=== PATIENT | male | born 1990 | race African-American/Black ===

== ENCOUNTER 2021-04-25 14:04 | Inpatient (IN) | payer BC, SELFPAY ==
[2021-04-25 14:18] VITALS: BP 143/82; PULSE 126; RESP 18; TEMP 36.3; O2SAT 100
[2021-04-25 17:02] VITALS: BP 124/63; PULSE 84; RESP 18; TEMP 37.6; O2SAT 98
--- NOTE | 2021-04-25 18:46 | ED.SKABFB ---
HPI - Skin/Abscess/Foreign Bdy General Chief complaint: Skin/Abscess/Foreign Body Stated complaint: abscess Time Seen by Provider: 04/25/21 17:17 Source: patient Mode of arrival: ambulatory Limitations: no limitations History of Present Illness HPI narrative: This is a 30 year old male that presents to the ER for an abscess to the buttock present over the last week. Reports swelling and pain to the area. Reports he has also noted over the last couple of days he has been thirsty and urinating more frequently. Denies fever or drainage. Related Data Home Medications Medication Instructions Recorded Confirmed No Home Medications 04/25/21 04/25/21 Allergies Allergy/AdvReac Type Severity Reaction Status Date / Time No Known Allergies Allergy Verified 04/25/21 17:04 Review of Systems Review of Systems: CONSTITUTIONAL: Denies fever GENITOURINARY: Denies dysuria or hematuria. SKIN: Reports abscess All systems reviewed & are unremarkable except as noted in HPI and below PMFSH Past Medical History Medical History (Updated 04/25/21 @ 22:04 by Helen Linder PA-C) Obesity (BMI 30-39.9) Social History Social History (Updated 04/25/21 @ 18:49 by eHlen Linder PA-C) Smoking status: Never smoker Exam Narrative: GENERAL: Well-appearing, well-nourished, and in no acute distress. HEAD: Normocephalic, atraumatic. EYES: EOMI. CHEST: No respiratory distress. HEART: Regular rate BACK: Pilonidal swelling and erythema with induration and central fluctuance EXTREMITIES: Normal range of motion. No edema. SKIN: Warm, dry, no rash. NEURO: No focal deficits. Alert and oriented x3. PSYCH: Normal mood and affect Course Consultations Consultation #1: Spoke with whitewater rafting guide about work-up who will consult. Date: 04/25/21 Consultation #2: Spoke with hospitalist about work-up who accepts admission Date: 04/25/21 Vital Signs Vital signs: Vital Signs Temperature 97.3 F L 04/25/21 14:18 Pulse Rate 126 H 04/25/21 14:18 Respiratory Rate 18 04/25/21 14:18 Blood Pressure 143/82 H 04/25/21 14:18 Pulse Oximetry 100 04/25/21 14:18 Temperature 98.2 F 04/25/21 21:54 Pulse Rate 117 H 04/25/21 21:54 Respiratory Rate 22 H 04/25/21 21:54 Blood Pressure 117/64 04/25/21 21:54 Pulse Oximetry 100 04/25/21 21:54 Procedures Abscess I/D back: Date of Incision: 04/25/21 Local Anesthetic: lidocaine 1% and with epi Amount of anesthesia used (mL): 3 Technique: incised with #11 blade Irrigation: Yes Packing used?: iodoform I&D Results: Pus and Blood MDM - Skin/Abscess/Foreign Bdy MDM Narrative Medical decision making narrative: Patient presents to the ER for pilonidal abscess. Tachycardic and borderline febrile on arrival. Also reporting polyuria and polydipsia. CBC is with leukocytosis to 18. Metabolic panel with a glucose of 452, bicarb of 9 and anion gap of 23. Beta hydroxybutyrate is 5.2. Urine with 2+ ketones. Hemoglobin A1c 11.3. ABG with pH of 7.281, PCO2 of 21.4. Patient was updated on case findings. He is a new onset diabetic. Hydrated with 3 L of IV fluids in the ED and started on IV antibiotics. Blood cultures and wound culture sent. Abscess was drained. Will be admitted for further management of DKA and sepsis. Spoke with whitewater rafting guide about work-up who will consult. Spoke with hospitalist about work-up who accepts admission Lab Data Attestation: I reviewed the patient's lab results. Result diagrams: 04/25/21 19:04 04/25/21 19:05 Labs: Lab Results 04/25/21 04/25/21 04/25/21 Range/Units 18:50 19:04 19:05 WBC 18.0 H (4.5-10.0) K/mm3 RBC 5.49 (4.6-6.20) M/mm3 Hgb 15.2 (14.0-18.0) g/dL Hct 45.1 (42.0-52.0) % MCV 82.1 (80-100) fl MCH 27.7 (26-34) pg MCHC 33.7 (32-36) g/dl RDW 12.1 (11.5-14.5) % Plt Count 260 (150-375) k/mm3 MPV 13.0 H (7.4-10.4) fl [facility]
[2021-04-25 18:52] LABS: Glucose Point of Care 455 mg/dl (65-105)
[2021-04-25 19:09] VITALS: BP 117/82; PULSE 135; TEMP 37.7; O2SAT 98
[2021-04-25] MEDS: SODIUM CHLORIDE 0.9% IV 1,000 ML 999 ML IV CONT ×3 (19:18→23:20)
[2021-04-25 19:19] LABS: Basophils Absolute Auto 0.1 K/mm3 (0.0-0.1); Basophils Percent Auto 0.4 % (0.2-1.2); Eosinophils Percent Auto 0.2 % (0-4.4); Hematocrit 45.1 % (42.0-52.0); Hemoglobin 15.2 g/dL (14.0-18.0); Immature Granulocyte Absolute 0.13 K/mm3 (0.00-0.031); Immature Granulocyte Percent A 0.7 % (0-0.5); Lymphocytes Absolute Auto 1.67 K/mm3 (0.9-3.2); Lymphocytes Percent Auto 9.3 % (18.3-44.2); Mean Corpuscular HGB Conc 33.7 g/dl (32-36); Mean Corpuscular Hemoglobin 27.7 pg (26-34); Mean Corpuscular Volume 82.1 fl (80-100); Monocytes Absolute Auto 1.5 K/mm3 (0.1-0.6); Monocytes Percent Auto 8.3 % (2.6-8.5); Neutrophils Absolute Auto 14.6 K/mm3 (1.3-6.7); Neutrophils Percent Auto 81.1 % (45.5-73.1); Platelet Count Result 260 k/mm3 (150-375); Red Blood Count 5.49 M/mm3 (4.6-6.20); Red Cell Distribution Width 12.1 % (11.5-14.5)
[2021-04-25 19:29] LABS: Add Urine Microscopic? YES; Appearance Urine Clear (Clear); Bilirubin Urine Negative (Negative); Blood Urine Negative (Negative); Color Urine Straw (Yellow); Glucose Urine UA 3+ mg/dL (Negative); Ketones Urine 2+ mg/dL (Negative); Leukocyte Esterase Ur Negative LEU/UL (Negative); Mucus Urine Rare /lpf; Nitrate Urine Negative (Negative); Protein Urine 1+ mg/dL (Negative); RBC Urine 0-2 /hpf (0-2); Squamous Epithelial Cell Urine Rare /hpf (Few); Urobilinogen Urine Negative mg/dL (<2.0); WBC Urine 0-3 /hpf
[2021-04-25 19:31] LABS: Alanine Aminotransferase 47 U/L (4-50); Albumin Level 5.1 g/dL (3.5-5.1); Alkaline Phosphatase 172 U/L (38-126); Anion Gap 23 mmol/L (8-16); Aspartate Amino Transferase 37 U/L (17-59); Bilirubin,Total 1.6 mg/dL (0.2-1.3); Blood Urea Nitrogen 11 mg/dL (9-20); Calcium 10.1 mg/dL (8.4-10.2); Carbon Dioxide 9 mmol/L (22-30); Chloride 99 mmol/L (98-107); Estimated CRCL calculation 124 ml/min; Estimated Glomerular Filt Rate > 60; Glucose 452 mg/dL (65-110); Hemoglobin A1C 11.3 % (<5.7); Potassium 4.2 mmol/L (3.4-5.0); Sodium 131 mmol/L (137-145)
[2021-04-25] MEDS: ACETAMINOPHEN 500 MG TABLET 1000 MG PO (19:34)
[2021-04-25 20:27] LABS: Lactic Acid Reflex 1.8 mmol/L (0.7-2.1)
[2021-04-25 20:30] LABS: Magnesium 1.9 mg/dL (1.6-2.3); Phosphorus 3.8 mg/dL (2.5-4.5)
[2021-04-25 20:33] LABS: CRP 8.3 mg/dL (<1.0)
[2021-04-25 20:34] LABS: Base Excess ABG -14.7 mEq/l (+/-2.0); Carboxyhemoglobin 0.6 % THb (0-2.0); Fractional Inspired Oxygen 21 %; HCO3 ABG 9.9 mEq/l (22.0-26.0); Methemoglobin ABG 0.3 %THb (0-1.5); Oxygen Content ABG 19.1 %vol (16.0-22.0); Oxygen Saturation ABG 97.3 % (95.0-100.0); Oxyhemoglobin 96.7 % THb (90.0-100.0); PO2 ABG 105.1 mmHg (80.0-100.0); Reduced Hemoglobin 2.4 %THb (0-5.0)
[2021-04-25 20:36] LABS: PCO2 ABG 21.4 mmHg (35.0-45.0); pH ABG 7.281 (7.350-7.450)
[2021-04-25 20:37] LABS: Device ROOM AIR; Modified Allen's Test Pass; Site Drawn RIGHT RADIAL
--- NOTE | 2021-04-25 21:24 | PM.IMHP ---
H&P: HPI History of Present Illness Date/Time: 04/25/21 21:24 Chief Complaint: Boil on buttock Narrative: 30-year-old male with past medical history of obesity who presents the ER fell follow a tyler of a boil on his coccyx. He reports that he noticed an area of tenderness on his and coccyx approximately 2 weeks ago. However was not until the last 48 hours that the area began to swell and become acutely more painful and warm to touch. He denied any associated fevers or chills. On exam the patient was noted to have a large infected pilonidal cyst that was drained by the ER provider. Shortly after arrival to the ER the patient did spike a fever to 99.9? and he was tachycardic with a heart rate up to the 130s. Incidentally he reported increased thirst and urinary frequency over the last several days. He reports that his mouth has been chronically dry for several weeks no matter how much he drinks. He has had increased nocturia. He denied prior history of diabetes. In the ER labs were obtained which demonstrated hyperglycemia with evidence of DKA. 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 He does not weigh himself and does not know if his weight is changed. He does snore and reports daytime fatigue and sleepiness. He has been having a sore throat recently in on exam he noted to have some white plaques to his soft palate and tongue. He has been having intermittent shortness of breath for the last couple of days. He denies any nausea or vomiting. He has been having normal bowel movements. He is not vaccinated against COVID-19. Review of Systems Review of Systems: 12 systems were reviewed with pertinent positives and negatives per HPI. Except as documented in the HPI, all other systems were reviewed and are negative. [facility] Past Medical History Medical History (Updated 04/26/21 @ 02:49 by Phylicia Dunne DO) Obesity (BMI 30-39.9) Surgical History Surgical History (Updated 04/26/21 @ 02:43 by Phylicia Dunne DO) No pertinent past surgical history Family History Family History (Updated 04/26/21 @ 02:44 by Phylicia Dunne DO) Mother Healthy female Father Healthy adult Social History Social History (Updated 04/26/21 @ 02:44 by Phylicia Dunne DO) Social History: Patient is single and does not have any children. 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 He occasionally drinks alcohol and only in moderation. He is a lifelong nonsmoker and denies illicit substance use. Smoking status: Never smoker Meds Home Medications and Allergies Home Medications Medication Instructions Recorded Confirmed Type No Home Medications 04/25/21 04/25/21 History Allergies Allergy/AdvReac Type Severity Reaction Status Date / Time No Known Allergies Allergy Verified 04/25/21 17:04 Vital Signs Vital Signs - 24 hr 04/25/21 14:18 04/25/21 17:02 04/25/21 19:09 Temperature 97.3 F L 99.7 F H 99.9 F H Pulse Rate 126 H 84 135 H Respiratory Rate 18 18 Blood Pressure 143/82 H 124/63 117/82 Pulse Oximetry 100 98 98 Exam Narrative: PHYSICAL EXAM: WEIGHT 127 kg BMI 35 General: No acute distress, obese HEENT: Mucous membranes are moist, white plaquing to the tongue, mucosal membranes and soft palate, crowded posterior oropharynx, large neck circumference, pupils are equal and reactive Respiratory: Clear to auscultation bilaterally, no increased work of breathing Cardiovascular: Sinus tachycardia, 2+ bilateral radial pedal pulses, no murmur Gastrointestinal: Soft, nontender, nondistended, positive bowel sounds Skin: No pallor, non jaundice Musculoskeletal: Normal foot exam except for some discoloration of the nail bed of 5th toe of the right foot, no clubbing, cyanosis or edema Neurological: Alert and oriented, speech is clear, no facial asymmetry, no localizing neurologic deficits noted on limited exam Psychiatric: Appropriate mood and affec
[2021-04-25 21:54] VITALS: BP 117/64; PULSE 117; RESP 22; TEMP 36.8; O2SAT 100
[2021-04-25 23:01] LABS: Anion Gap 17 mmol/L (8-16); Blood Urea Nitrogen 10 mg/dL (9-20); Calcium 9.3 mg/dL (8.4-10.2); Carbon Dioxide 10 mmol/L (22-30); Chloride 102 mmol/L (98-107); Estimated CRCL calculation 150 ml/min; Estimated Glomerular Filt Rate > 60; Glucose 422 mg/dL (65-110); Potassium 4.7 mmol/L (3.4-5.0); Sodium 129 mmol/L (137-145)
[2021-04-25 23:27] LABS: Glucose Point of Care 393 mg/dl (65-105)
[2021-04-25] MEDS: INSULIN HUMAN REGULAR (*BKC) 100 UNITS in SODIUM CHLORIDE 0.9% IV 99 ML 6.7 UNITS IV CONT (23:45)
[2021-04-25] MEDS: SODIUM CHLORIDE 0.9% IV 1,000 ML 150 ML IV CONT (23:47)
[2021-04-26] VITALS (83 sets, daily range): BP systolic 102–140; BP diastolic 54–89; PULSE 72–112; RESP 16–24; TEMP 36.6–37.6; O2SAT 98–100
[2021-04-26 00:29] LABS: Glucose Point of Care 334 mg/dl (65-105)
--- NOTE | 2021-04-26 00:30 | PC.NURSE ---
BS 334
[2021-04-26 01:39] LABS: SARS-CoV-2 RNA PCR Negative
[2021-04-26 01:41] LABS: Glucose Point of Care 265 mg/dl (65-105)
[2021-04-26 01:51] LABS: Anion Gap 13 mmol/L (8-16); Blood Urea Nitrogen 9 mg/dL (9-20); Calcium 8.6 mg/dL (8.4-10.2); Carbon Dioxide 10 mmol/L (22-30); Chloride 109 mmol/L (98-107); Estimated CRCL calculation 167 ml/min; Estimated Glomerular Filt Rate > 60; Glucose 276 mg/dL (65-110); Potassium 3.8 mmol/L (3.4-5.0); Sodium 132 mmol/L (137-145)
--- NOTE | 2021-04-26 02:41 | PC.NURSE ---
BS 206
[2021-04-26 02:47] LABS: Glucose Point of Care 206 mg/dl (65-105)
[2021-04-26] MEDS: KCL 20 MEQ/D5/0.45% SOD CHL 1,000 ML 150 ML IV CONT ×2 (03:10→10:00)
[2021-04-26 03:54] LABS: Glucose Point of Care 185 mg/dl (65-105)
[2021-04-26 05:04] LABS: Glucose Point of Care 219 mg/dl (65-105)
--- NOTE | 2021-04-26 05:44 | PC.NURSE ---
Per pharmacy - Insulin is IV compatible with Vancomycin. (Info not avail on [facility]).
[2021-04-26 06:15] LABS: Glucose Point of Care 227 mg/dl (65-105)
--- NOTE | 2021-04-26 06:18 | PC.NURSE ---
This RN was unaware insulin was not running w/ VANC started one hour ago, BS 227 at this time, titrated gtt per guidelines. VSS. Pt alert to verbal stimuli. Resting comfortably on stretcher.
[2021-04-26 07:24] LABS: Glucose Point of Care 219 mg/dl (65-105)
[2021-04-26 08:10] LABS: Basophils Percent Auto 0.3 % (0.2-1.2); Eosinophils Absolute Auto 0.1 K/mm3 (0-0.3); Eosinophils Percent Auto 0.8 % (0-4.4); Hematocrit 36.9 % (42.0-52.0); Hemoglobin 12.4 g/dL (14.0-18.0); Immature Granulocyte Percent A 0.7 % (0-0.5); Lymphocytes Absolute Auto 1.44 K/mm3 (0.9-3.2); Lymphocytes Percent Auto 10.4 % (18.3-44.2); Mean Corpuscular HGB Conc 33.6 g/dl (32-36); Mean Corpuscular Volume 83.3 fl (80-100); Mean Platelet Volume 12.5 fl (7.4-10.4); Monocytes Absolute Auto 1.8 K/mm3 (0.1-0.6); Monocytes Percent Auto 12.7 % (2.6-8.5); Neutrophils Absolute Auto 10.4 K/mm3 (1.3-6.7); Neutrophils Percent Auto 75.1 % (45.5-73.1); Platelet Count Result 183 k/mm3 (150-375); Red Blood Count 4.43 M/mm3 (4.6-6.20); Red Cell Distribution Width 12.2 % (11.5-14.5); White Blood Count 13.8 K/mm3 (4.5-10.0)
[2021-04-26 08:21] LABS: Glucose Point of Care 210 mg/dl (65-105)
[2021-04-26 08:38] LABS: Anion Gap 9 mmol/L (8-16); Blood Urea Nitrogen 7 mg/dL (9-20); Calcium 8.6 mg/dL (8.4-10.2); Carbon Dioxide 14 mmol/L (22-30); Chloride 108 mmol/L (98-107); Estimated CRCL calculation 189 ml/min; Estimated Glomerular Filt Rate > 60; Glucose 197 mg/dL (65-110); Potassium 3.9 mmol/L (3.4-5.0); Sodium 131 mmol/L (137-145)
[2021-04-26] MEDS: ENOXAPARIN 40 MG/0.4 ML SYRINGE SUB-Q (08:48)
[2021-04-26] MEDS: FLUCONAZOLE 100 MG TABLET PO (08:48)
[2021-04-26] MEDS: INSULIN HUMAN REGULAR (*BKC) 100 UNITS in SODIUM CHLORIDE 0.9% IV 99 ML 15 UNITS IV CONT (09:39)
[2021-04-26 09:42] LABS: Glucose Point of Care 176 mg/dl (65-105)
[2021-04-26 11:00] LABS: Glucose Point of Care 146 mg/dl (65-105)
[2021-04-26 12:23] LABS: Anion Gap 8 mmol/L (8-16); Blood Urea Nitrogen 6 mg/dL (9-20); Calcium 8.6 mg/dL (8.4-10.2); Carbon Dioxide 15 mmol/L (22-30); Chloride 107 mmol/L (98-107); Estimated CRCL calculation 189 ml/min; Estimated Glomerular Filt Rate > 60; Glucose 147 mg/dL (65-110); Potassium 3.9 mmol/L (3.4-5.0); Sodium 130 mmol/L (137-145)
[2021-04-26] MEDS: SODIUM CHLORIDE 0.9% IV 1,000 ML 150 ML IV CONT (13:39)
[2021-04-26] MEDS: INSULIN GLARGINE (*BKC) 100 UNITS/ML 25 UNITS SUB-Q (14:28)
[2021-04-26 14:35] LABS: Glucose Point of Care 179 mg/dl (65-105)
--- NOTE | 2021-04-26 14:45 | PM.IMPN ---
Progress Note: A&P Assessment and Plan (1) DKA (diabetic ketoacidosis): Qualifiers: Diabetes mellitus type: type 2 Diabetes mellitus complication detail: without coma Qualified Code(s): E11.10 - Type 2 diabetes mellitus with ketoacidosis without coma Code(s): E11.10 - Type 2 diabetes mellitus with ketoacidosis without coma Status: Acute Assessment and Plan: 04/26 transition to basal pre meal and sliding scale insulin 04/26 continue IV fluids until advancement of diet as tolerated Results of C-peptide and insulin autoantibodies pending (2) Infected pilonidal cyst: Code(s): L05.91 - Pilonidal cyst without abscess Status: Acute Assessment and Plan: Continue vancomycin and Primaxin (3) Oral candidiasis: Code(s): B37.0 - Candidal stomatitis Status: Acute Assessment and Plan: White coating on tongue admission currently on oral fluconazole (4) Sepsis: Qualifiers: Sepsis type: sepsis due to unspecified organism Sepsis acute organ dysfunction status: without acute organ dysfunction Qualified Code(s): A41.9 - Sepsis, unspecified organism Code(s): A41.9 - Sepsis, unspecified organism Status: Acute Assessment and Plan: Clinically resolved Subjective Date/time seen: 04/26/21 14:45 Interval history: April 26 visit. 30-year-old gentleman with new onset diabetes of uncertain type with DKA and infected cyst over coccyx. Admitted April 25. Blood sugar down below 200 with drip. Tolerating liquids. Drip stopped and emergency department where he is boarding overnight due to lack of beds. Notes recent frequent urination over the last couple of days with severely dry mouth. Denied vision changes or weight loss. Denied chest pain or shortness of breath palpitations syncope presyncope bowel or bladder issues or abnormal bleeding. 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 He has never given insulin before or been around anyone who was in an insulin-dependent diabetic. He denied any family history of type 1 or type 2 diabetes. Review of Systems Review of Systems: All systems reviewed & are unremarkable except as noted in HPI and below Exam Narrative: HEENT: PERRL, sclerae nonicteric, pharyngeal mucosa pink and intact NECK: No JVD, adenopathy, or thyromegaly CHEST: Clear to auscultation. Normal effort. HEART: NL S1/S2, regular, no murmur ABDOMEN: BS+, soft, nontender, no mass, no bruits EXTREMITIES: No cyanosis, edema, or clubbing. Skin of feet intact with intact pedal pulses and good capillary refill and healthy nails. NEUROLOGIC: CN intact and symmetric to inspection. MUSCULOSKELETAL: Tone and strength symmetric. PSYCH: Alert. Oriented to person, place, and time. Objective Data Vital Signs Vital Signs: Vital Signs - 24 hr 04/25/21 17:02 04/25/21 19:09 04/25/21 21:54 Temperature 99.7 F H 99.9 F H 98.2 F Pulse Rate 84 135 H 117 H Respiratory Rate 18 22 H Blood Pressure 124/63 117/82 117/64 Pulse Oximetry 98 98 100 04/26/21 00:24 04/26/21 01:35 04/26/21 01:41 Temperature Pulse Rate 104 H 104 H 108 H Respiratory Rate 24 H 20 Blood Pressure 140/64 110/57 L Pulse Oximetry 100 99 98 04/26/21 01:47 04/26/21 02:34 04/26/21 02:43 Temperature Pulse Rate 103 H Respiratory Rate 21 H Blood Pressure 121/58 L Pulse Oximetry 99 99 100 04/26/21 02:45 04/26/21 03:00 04/26/21 03:01 Temperature Pulse Rate Respiratory Rate Blood Pressure 115/56 L Pulse Oximetry 100 99 99 04/26/21 03:15 04/26/21 03:20 04/26/21 03:30 Temperature Pulse Rate 102 H Respiratory Rate 22 H Blood Pressure 115/56 L Pulse Oximetry 100 100 100 04/26/21 03:45 04/26/21 03:50 04/26/21 03:55 Temperature Pulse Rate 99 Respiratory Rate 18 Blood Pressure 136/73 136/73 Pulse Oximetry 100 100 04/26/21 04:00 04/26/21 04:15 04/26/21 04:30 Temperature Pulse Rate Respiratory Rate Blood Pressure
[2021-04-26 17:01] LABS: Glucose Point of Care 290 mg/dl (65-105)
[2021-04-26] MEDS: INSULIN ASPART (*BKC) 100 UNITS/ML SUB-Q ×2 (17:03→17:32)
--- NOTE | 2021-04-26 18:52 | PC.NURSE ---
This patient, Benedicto Santizo, was admitted to [facility] Surg Room 322-02. Patient/family oriented to hospital policies and general routines including ID bracelet, bed and alarms, visiting hours, pain management, procedures, bathroom and other care routines, personal items, smoking policy, room service/diet, and visiting hours. Information on how to activate the Rapid Response Team has been discussed. Patient/Family are encouraged to report perceived risks to care and to ask questions if they do not understand what they are told or what they should do.
[2021-04-26 20:24] LABS: Vancomycin Trough 12.9 ug/mL (10.0-20.0)
[2021-04-26 21:16] LABS: Glucose Point of Care 338 mg/dl (65-105)
[2021-04-26] MEDS: INSULIN ASPART (*BKC) 100 UNITS/ML 6 UNITS SUB-Q (21:58)
[2021-04-27 06:00] VITALS: BP 127/66; PULSE 105; RESP 18; TEMP 36.1; O2SAT 98
[2021-04-27 08:00] VITALS: PULSE 105; RESP 18; O2SAT 98
[2021-04-27 08:00] LABS: Hematocrit 36.9 % (42.0-52.0); Hemoglobin 12.4 g/dL (14.0-18.0); Mean Corpuscular HGB Conc 33.6 g/dl (32-36); Mean Corpuscular Hemoglobin 28.4 pg (26-34); Mean Corpuscular Volume 84.6 fl (80-100); Mean Platelet Volume 12.6 fl (7.4-10.4); Platelet Count Result 189 k/mm3 (150-375); Red Blood Count 4.36 M/mm3 (4.6-6.20); Red Cell Distribution Width 12.2 % (11.5-14.5)
[2021-04-27 08:24] LABS: Anion Gap 9 mmol/L (8-16); Blood Urea Nitrogen 6 mg/dL (9-20); Carbon Dioxide 15 mmol/L (22-30); Chloride 105 mmol/L (98-107); Estimated CRCL calculation 189 ml/min; Estimated Glomerular Filt Rate > 60; Glucose 323 mg/dL (65-110); Potassium 3.5 mmol/L (3.4-5.0); Sodium 129 mmol/L (137-145)
[2021-04-27 08:48] LABS: Glucose Point of Care 306 mg/dl (65-105)
[2021-04-27] MEDS: ENOXAPARIN 40 MG/0.4 ML SYRINGE SUB-Q (09:12)
[2021-04-27] MEDS: INSULIN ASPART (*BKC) 100 UNITS/ML SUB-Q ×6 (09:13→17:28)
[2021-04-27] MEDS: INSULIN GLARGINE (*BKC) 100 UNITS/ML 32 UNITS SUB-Q (09:13)
[2021-04-27] MEDS: FLUCONAZOLE 100 MG TABLET PO (09:17)
[2021-04-27 11:54] LABS: Glucose Point of Care 295 mg/dl (65-105)
--- NOTE | 2021-04-27 12:14 | PM.IMPN ---
Subjective Date/time seen: 04/27/21 12:14 Objective Data Vital Signs Vital Signs: Vital Signs - 24 hr 04/26/21 12:15 04/26/21 12:30 04/26/21 12:45 Temperature Pulse Rate 100 97 96 Respiratory Rate Blood Pressure Pulse Oximetry 100 100 100 04/26/21 13:00 04/26/21 13:01 04/26/21 13:15 Temperature Pulse Rate 96 97 96 Respiratory Rate Blood Pressure 128/62 Pulse Oximetry 100 100 100 04/26/21 13:30 04/26/21 13:45 04/26/21 14:00 Temperature Pulse Rate 100 97 96 Respiratory Rate Blood Pressure Pulse Oximetry 100 100 100 04/26/21 14:01 04/26/21 14:15 04/26/21 14:30 Temperature Pulse Rate 101 H 99 97 Respiratory Rate Blood Pressure 119/60 Pulse Oximetry 100 100 100 04/26/21 14:45 04/26/21 15:00 04/26/21 15:01 Temperature Pulse Rate 97 96 94 Respiratory Rate Blood Pressure 134/66 Pulse Oximetry 100 99 100 04/26/21 15:15 04/26/21 15:30 04/26/21 15:45 Temperature Pulse Rate 93 97 99 Respiratory Rate Blood Pressure Pulse Oximetry 100 100 100 04/26/21 16:00 04/26/21 16:15 04/26/21 17:46 Temperature Pulse Rate 104 H 99 72 Respiratory Rate 16 Blood Pressure 116/58 L Pulse Oximetry 98 100 99 04/26/21 19:00 04/26/21 22:00 04/27/21 06:00 Temperature 97.8 F 99.6 F 96.9 F L Pulse Rate 112 H 107 H 105 H Respiratory Rate 18 18 18 Blood Pressure 137/75 139/59 L 127/66 Pulse Oximetry 100 98 98 04/27/21 08:00 Temperature Pulse Rate 105 H Respiratory Rate 18 Blood Pressure Pulse Oximetry 98 Intake/Output Intake/Output: Intake & Output 04/24/21 04/25/21 04/26/21 04/27/21 23:59 23:59 23:59 23:59 Intake Total 1600 6700 500 Output Total 450 Balance 1600 6250 500 Meds/Results Medications: Active Medications Generic Name Dose Route Start Last Admin Trade Name Freq PRN Reason Stop Dose Admin Dextrose 12.5 gm 04/25/21 21:04 Dextrose 50% 25 Gm/50 Ml Syringe IV PUSH PRN PRN Hypoglycemia Protocol Enoxaparin Sodium 40 mg 04/26/21 09:00 04/27/21 09:12 Enoxaparin 40 Mg/0.4 Ml Syringe SUB-Q 40 mg DAILY MONA Administration Fluconazole 100 mg 04/26/21 09:00 04/27/21 09:17 Fluconazole 100 Mg Tablet PO 100 mg QAM MONA Administration Glucagon 1 mg 04/25/21 21:04 Glucagon For Inj 1 Mg Vial IM PRN PRN Hypoglycemia Protocol Glucose 15 gm 04/25/21 21:04 Glucose Oral Gel 15 Gm Of Glucse In 37.5 Gm Tube PO PRN PRN Hypoglycemia Protocol Imipenem/Cilastatin Sodium 500 100 mls @ 300 mls/hr 04/26/21 01:00 04/27/21 05:56 mg/ Sodium Chloride IVPB 100 mls/hr Q6HR MONA Administration Dextrose 1,000 mls @ 100 mls/hr 04/25/21 21:04 Dextrose 5% 1,000 Ml IVPB PRN PRN Hypoglycemia Protocol Vancomycin HCl 1,750 mg in 500 mls @ 333.333 mls/hr 04/26/21 21:00 04/27/21 04:17 Vancomycin 1,750 Mg/D5w 500 Ml IVPB 333.33 mls/hr Q8H MONA Administration Insulin Aspart 5 units 04/26/21 17:00 04/27/21 09:13 Insulin Aspart (*Bkc) 100 Units/Ml SUB-Q 5 units TIDWM MONA Administration Insulin Aspart 3 - 6 units 04/26/21 17:00 04/27/21 09:14 Insulin Aspart (*Bkc) 100 Units/Ml SUB-Q 5 units TIDWM MONA Administration Protocol Insulin Glargine 32 units 04/27/21 09:00 04/27/21 09:13 Insulin Glargine (*Bkc) 100 Units/Ml SUB-Q 32 units DAILY MONA Administration Labs Labs: Laboratory Results - last 24 hr 04/26/21 04/26/21 04/26/21 11:39 14:31 16:59 WBC RBC Hgb Hct MCV MCH MCHC RDW Plt Count MPV Sodium 130 L Potassium 3.9 Chloride 107 Carbon Dioxide 15 L Anion Gap 8 BUN 6 L Creatinine 0.70 Estim Creat Clear Calc 189 Estimated GFR > 60 Glucose 147 H POC Capillary Glucose 179 H 290 H Calcium 8.6 Vancomycin Trough 04/26/21 04/26/21 04/27/21 19:53 21:13 07:22 WBC 9.0 RBC 4.36 L Hgb 12.4 L
[2021-04-27 15:51] VITALS: BP 126/62; PULSE 100; RESP 18; TEMP 36.2; O2SAT 99
--- NOTE | 2021-04-27 16:49 | PM.IMPN ---
Progress Note: A&P Assessment and Plan (1) DKA (diabetic ketoacidosis): Qualifiers: Diabetes mellitus type: type 2 Diabetes mellitus complication detail: without coma Qualified Code(s): E11.10 - Type 2 diabetes mellitus with ketoacidosis without coma Code(s): E11.10 - Type 2 diabetes mellitus with ketoacidosis without coma Status: Acute Assessment and Plan: 04/26 transition to basal pre meal and sliding scale insulin 04/26 continue IV fluids until advancement of diet as tolerated Results of C-peptide and insulin autoantibodies pending (2) Infected pilonidal cyst: Code(s): L05.91 - Pilonidal cyst without abscess Status: Acute Assessment and Plan: Continue vancomycin and Primaxin (3) Oral candidiasis: Code(s): B37.0 - Candidal stomatitis Status: Acute Assessment and Plan: White coating on tongue admission currently on oral fluconazole (4) Sepsis: Qualifiers: Sepsis type: sepsis due to unspecified organism Sepsis acute organ dysfunction status: without acute organ dysfunction Qualified Code(s): A41.9 - Sepsis, unspecified organism Code(s): A41.9 - Sepsis, unspecified organism Status: Acute Assessment and Plan: Clinically resolved Subjective Date/time seen: 04/27/21 16:49 Interval history: 04/27 visit. Much less pain him presacral region. No fevers or chills. No chest pain or shortness of breath. No GI or issues. No pain or tingling in the feet. No visual changes. Review of Systems Review of Systems: All systems reviewed & are unremarkable except as noted in HPI and below Exam Narrative: SKIN: Presacral wound with packing in place HEENT: Mild lateral deviation OD, PERRL, sclerae nonicteric, pharyngeal mucosa pink and intact NECK: No JVD CHEST: Clear to auscultation. Normal effort. HEART: NL S1/S2, regular, no murmur ABDOMEN: BS+, soft, nontender, no mass, no bruits EXTREMITIES: No cyanosis, edema, or clubbing NEUROLOGIC: CN intact and symmetric to inspection. MUSCULOSKELETAL: Tone and strength symmetric. PSYCH: Alert. Oriented to person, place, and time. Objective Data Vital Signs Vital Signs: Vital Signs - 24 hr 04/26/21 17:46 04/26/21 19:00 04/26/21 22:00 Temperature 97.8 F 99.6 F Pulse Rate 72 112 H 107 H Respiratory Rate 16 18 18 Blood Pressure 116/58 L 137/75 139/59 L Pulse Oximetry 99 100 98 04/27/21 06:00 04/27/21 08:00 04/27/21 15:51 Temperature 96.9 F L 97.2 F L Pulse Rate 105 H 105 H 100 Respiratory Rate 18 18 18 Blood Pressure 127/66 126/62 Pulse Oximetry 98 98 99 Intake/Output Intake/Output: Intake & Output 04/24/21 04/25/21 04/26/21 04/27/21 23:59 23:59 23:59 23:59 Intake Total 1600 6700 1200 Output Total 450 Balance 1600 6250 1200 Meds/Results Medications: Active Medications Generic Name Dose Route Start Last Admin Trade Name Freq PRN Reason Stop Dose Admin Dextrose 12.5 gm 04/25/21 21:04 Dextrose 50% 25 Gm/50 Ml Syringe IV PUSH PRN PRN Hypoglycemia Protocol Enoxaparin Sodium 40 mg 04/26/21 09:00 04/27/21 09:12 Enoxaparin 40 Mg/0.4 Ml Syringe SUB-Q 40 mg DAILY MONA Administration Fluconazole 100 mg 04/26/21 09:00 04/27/21 09:17 Fluconazole 100 Mg Tablet PO 100 mg QAM MONA Administration Glucagon 1 mg 04/25/21 21:04 Glucagon For Inj 1 Mg Vial IM PRN PRN Hypoglycemia Protocol Glucose 15 gm 04/25/21 21:04 Glucose Oral Gel 15 Gm Of Glucse In 37.5 Gm Tube PO PRN PRN Hypoglycemia Protocol Imipenem/Cilastatin Sodium 500 100 mls @ 300 mls/hr 04/26/21 01:00 04/27/21 12:41 mg/ Sodium Chloride IVPB 100 mls/hr Q6HR MONA Administration Dextrose 1,000 mls @ 100 mls/hr 04/25/21 21:04 Dextrose 5% 1,000 Ml IVPB PRN PRN Hypoglycemia Protocol Vancomycin HCl 1,750 mg in 500 mls @ 333.333 mls/hr 04/26/21 21:00 04/27/21 14:21 Vancomycin 1,
[2021-04-27 16:50] LABS: Glucose Point of Care 349 mg/dl (65-105)
[2021-04-27 20:47] LABS: Vancomycin Trough 18.4 ug/mL (10.0-20.0)
[2021-04-27 22:00] VITALS: BP 131/70; PULSE 101; RESP 18; TEMP 36.6; O2SAT 100
[2021-04-27 22:14] LABS: Glucose Point of Care 246 mg/dl (65-105)
[2021-04-28 05:51] VITALS: BP 141/66; PULSE 88; RESP 18; TEMP 36.4; O2SAT 100
[2021-04-28 07:50] LABS: Glucose Point of Care 292 mg/dl (65-105)
[2021-04-28 08:00] VITALS: PULSE 106; RESP 18; O2SAT 100
[2021-04-28 08:07] LABS: Anion Gap 9 mmol/L (8-16); Blood Urea Nitrogen 7 mg/dL (9-20); Calcium 8.9 mg/dL (8.4-10.2); Carbon Dioxide 19 mmol/L (22-30); Chloride 105 mmol/L (98-107); Estimated CRCL calculation 189 ml/min; Estimated Glomerular Filt Rate > 60; Glucose 295 mg/dL (65-110); Potassium 3.3 mmol/L (3.4-5.0); Sodium 133 mmol/L (137-145)
--- NOTE | 2021-04-28 09:00 | PM.IMPN ---
Progress Note: A&P Assessment and Plan (1) DKA (diabetic ketoacidosis): Qualifiers: Diabetes mellitus complication detail: without coma Diabetes mellitus type: type 2 Qualified Code(s): E11.10 - Type 2 diabetes mellitus with ketoacidosis without coma Code(s): E11.10 - Type 2 diabetes mellitus with ketoacidosis without coma Status: Acute Assessment and Plan: 04/26 transition to basal pre meal and sliding scale insulin 04/26 continue IV fluids until advancement of diet as tolerated Results of C-peptide and insulin autoantibodies pending Started metformin and glipizide Glucose looks to still be in the 300s community educator will see today (2) Infected pilonidal cyst: Code(s): L05.91 - Pilonidal cyst without abscess Status: Acute Assessment and Plan: Continue vancomycin and Primaxin Will need to change bacterium upon discharge (3) Oral candidiasis: Code(s): B37.0 - Candidal stomatitis Status: Acute Assessment and Plan: White coating on tongue admission currently on oral fluconazole (4) Sepsis: Qualifiers: Sepsis acute organ dysfunction status: without acute organ dysfunction Sepsis type: sepsis due to unspecified organism Qualified Code(s): A41.9 - Sepsis, unspecified organism Code(s): A41.9 - Sepsis, unspecified organism Status: Acute Assessment and Plan: Clinically resolved Time Spent With Patient Time with patient: 25 - 35 minutes Subjective Date/time seen: 04/28/21 0900 Interval history: Date/Time: 04/25/21 21:24 Narrative: 30-year-old male with past medical history of obesity who presents the ER fell follow a tyler of a boil on his coccyx. He reports that he noticed an area of tenderness on his and coccyx approximately 2 weeks ago. However was not until the last 48 hours that the area began to swell and become acutely more painful and warm to touch. He denied any associated fevers or chills. On exam the patient was noted to have a large infected pilonidal cyst that was drained by the ER provider. Shortly after arrival to the ER the patient did spike a fever to 99.9? and he was tachycardic with a heart rate up to the 130s. Incidentally he reported increased thirst and urinary frequency over the last several days. He reports that his mouth has been chronically dry for several weeks no matter how much he drinks. He has had increased nocturia. He denied prior history of diabetes. In the ER labs were obtained which demonstrated hyperglycemia with evidence of DKA. 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 He does not weigh himself and does not know if his weight is changed. He does snore and reports daytime fatigue and sleepiness. He has been having a sore throat recently in on exam he noted to have some white plaques to his soft palate and tongue. He has been having intermittent shortness of breath for the last couple of days. He denies any nausea or vomiting. He has been having normal bowel movements. Date/time seen: 04/26/21 14:45 Interval history: April 26 visit. 30-year-old gentleman with new onset diabetes of uncertain type with DKA and infected cyst over coccyx. Admitted April 25. Blood sugar down below 200 with drip. Tolerating liquids. Drip stopped and emergency department where he is boarding overnight due to lack of beds. Notes recent frequent urination over the last couple of days with severely dry mouth. Denied vision changes or weight loss. Denied chest pain or shortness of breath palpitations syncope presyncope bowel or bladder issues or abnormal bleeding. 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 He has never given insulin before or been around anyone who was in an insulin-dependent diabetic. He denied any family history of type 1 or type 2 diabetes. Date/time seen: 04/27/21 16:49 Interval history: 04/27 visit. Alexandro shoemaker
[2021-04-28] MEDS: ENOXAPARIN 40 MG/0.4 ML SYRINGE SUB-Q (09:26)
[2021-04-28] MEDS: FLUCONAZOLE 100 MG TABLET PO (09:26)
[2021-04-28] MEDS: INSULIN ASPART (*BKC) 100 UNITS/ML SUB-Q ×6 (09:30→17:40)
[2021-04-28] MEDS: INSULIN GLARGINE (*BKC) 100 UNITS/ML 32 UNITS SUB-Q (09:31)
[2021-04-28 11:28] LABS: Glucose Point of Care 305 mg/dl (65-105)
[2021-04-28 12:27] LABS: Basophils Percent Auto 0.5 % (0.2-1.2); Eosinophils Absolute Auto 0.2 K/mm3 (0-0.3); Eosinophils Percent Auto 2.7 % (0-4.4); Hematocrit 36.4 % (42.0-52.0); Immature Granulocyte Percent A 1.4 % (0-0.5); Lymphocytes Absolute Auto 1.42 K/mm3 (0.9-3.2); Lymphocytes Percent Auto 19.4 % (18.3-44.2); Mean Corpuscular Volume 84.8 fl (80-100); Mean Platelet Volume 12.1 fl (7.4-10.4); Monocytes Absolute Auto 1.1 K/mm3 (0.1-0.6); Monocytes Percent Auto 14.9 % (2.6-8.5); Neutrophils Absolute Auto 4.5 K/mm3 (1.3-6.7); Neutrophils Percent Auto 61.1 % (45.5-73.1); Platelet Count Result 214 k/mm3 (150-375); Red Blood Count 4.29 M/mm3 (4.6-6.20); Red Cell Distribution Width 12.6 % (11.5-14.5); White Blood Count 7.3 K/mm3 (4.5-10.0)
[2021-04-28] MEDS: POTASSIUM CHLORIDE 20 MEQ TABLET 40 MEQ PO (12:44)
[2021-04-28] MEDS: SILVERGEL (ELTA) 45 ML 1 APPLIC TOPICAL (12:44)
--- NOTE | 2021-04-28 12:49 | PCDIET ---
Consulted for DKA admission. Provided pt with nutrition education for management of Type 2 DM. See nutritional teachings for further information.
[2021-04-28] MEDS: metFORMIN HCL 500 MG TABLET 1000 MG PO ×2 (13:25→17:40)
[2021-04-28] MEDS: glipiZIDE XL 2.5 MG TAB.ER.24 PO (13:25)
[2021-04-28 14:00] VITALS: BP 123/75; PULSE 106; RESP 18; TEMP 36.3; O2SAT 100
[2021-04-28 14:45] VITALS: BMI 34.9
[2021-04-28 16:01] LABS: Glucose Point of Care 255 mg/dl (65-105)
[2021-04-28 20:50] LABS: Glucose Point of Care 183 mg/dl (65-105)
[2021-04-28 21:49] VITALS: BP 131/54; PULSE 98; RESP 18; TEMP 36.8; O2SAT 100
[2021-04-29 05:35] VITALS: BP 133/65; PULSE 91; RESP 18; TEMP 36.9; O2SAT 100
[2021-04-29 07:23] LABS: Anion Gap 6 mmol/L (8-16); Blood Urea Nitrogen 6 mg/dL (9-20); Calcium 8.6 mg/dL (8.4-10.2); Carbon Dioxide 21 mmol/L (22-30); Chloride 108 mmol/L (98-107); Estimated CRCL calculation 189 ml/min; Estimated Glomerular Filt Rate > 60; Glucose 197 mg/dL (65-110); Potassium 3.1 mmol/L (3.4-5.0); Sodium 135 mmol/L (137-145)
[2021-04-29 07:54] LABS: Glucose Point of Care 207 mg/dl (65-105)
--- NOTE | 2021-04-29 07:56 | PC.NURSE ---
Outpatient referral started for [facility]. [facility]
[2021-04-29 08:00] VITALS: PULSE 91; RESP 18; O2SAT 100
[2021-04-29] MEDS: glipiZIDE XL 2.5 MG TAB.ER.24 PO ×2 (08:53→13:00)
[2021-04-29] MEDS: metFORMIN HCL 500 MG TABLET 1000 MG PO ×2 (08:53→18:05)
[2021-04-29] MEDS: ENOXAPARIN 40 MG/0.4 ML SYRINGE SUB-Q (08:53)
[2021-04-29] MEDS: FLUCONAZOLE 100 MG TABLET PO (08:53)
--- NOTE | 2021-04-29 09:00 | PM.IMPN ---
Progress Note: A&P Assessment and Plan (1) DKA (diabetic ketoacidosis): Qualifiers: Diabetes mellitus complication detail: without coma Diabetes mellitus type: type 2 Qualified Code(s): E11.10 - Type 2 diabetes mellitus with ketoacidosis without coma Code(s): E11.10 - Type 2 diabetes mellitus with ketoacidosis without coma Status: Acute Assessment and Plan: 04/26 transition to basal pre meal and sliding scale insulin 04/26 continue IV fluids until advancement of diet as tolerated Results of C-peptide and insulin autoantibodies pending Started metformin and glipizide Glucose looks to still be in the 200-300s nursing educator will see today (2) Infected pilonidal cyst: Code(s): L05.91 - Pilonidal cyst without abscess Status: Acute Assessment and Plan: Continue vancomycin and Primaxin Will need to change bacterium upon discharge (3) Oral candidiasis: Code(s): B37.0 - Candidal stomatitis Status: Acute Assessment and Plan: White coating on tongue admission currently on oral fluconazole (4) Sepsis: Qualifiers: Sepsis acute organ dysfunction status: without acute organ dysfunction Sepsis type: sepsis due to unspecified organism Qualified Code(s): A41.9 - Sepsis, unspecified organism Code(s): A41.9 - Sepsis, unspecified organism Status: Acute Assessment and Plan: Clinically resolved Time Spent With Patient Time with patient: Greater than 35 minutes Subjective Date/time seen: 04/29/21 0900 Interval history: Date/Time: 04/25/21 21:24 Narrative: 30-year-old male with past medical history of obesity who presents the ER fell follow a tyler of a boil on his coccyx. He reports that he noticed an area of tenderness on his and coccyx approximately 2 weeks ago. However was not until the last 48 hours that the area began to swell and become acutely more painful and warm to touch. He denied any associated fevers or chills. On exam the patient was noted to have a large infected pilonidal cyst that was drained by the ER provider. Shortly after arrival to the ER the patient did spike a fever to 99.9? and he was tachycardic with a heart rate up to the 130s. Incidentally he reported increased thirst and urinary frequency over the last several days. He reports that his mouth has been chronically dry for several weeks no matter how much he drinks. He has had increased nocturia. He denied prior history of diabetes. In the ER labs were obtained which demonstrated hyperglycemia with evidence of DKA. 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 He does not weigh himself and does not know if his weight is changed. He does snore and reports daytime fatigue and sleepiness. He has been having a sore throat recently in on exam he noted to have some white plaques to his soft palate and tongue. He has been having intermittent shortness of breath for the last couple of days. He denies any nausea or vomiting. He has been having normal bowel movements. Date/time seen: 04/26/21 14:45 Interval history: April 26 visit. 30-year-old gentleman with new onset diabetes of uncertain type with DKA and infected cyst over coccyx. Admitted April 25. Blood sugar down below 200 with drip. Tolerating liquids. Drip stopped and emergency department where he is boarding overnight due to lack of beds. Notes recent frequent urination over the last couple of days with severely dry mouth. Denied vision changes or weight loss. Denied chest pain or shortness of breath palpitations syncope presyncope bowel or bladder issues or abnormal bleeding. 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 He has never given insulin before or been around anyone who was in an insulin-dependent diabetic. He denied any family history of type 1 or type 2 diabetes. Date/time seen: 04/27/21 16:49 Interval history: 04/27 v
[2021-04-29] MEDS: INSULIN ASPART (*BKC) 100 UNITS/ML SUB-Q ×4 (09:02→18:05)
[2021-04-29] MEDS: INSULIN GLARGINE (*BKC) 100 UNITS/ML 32 UNITS SUB-Q (09:07)
[2021-04-29] MEDS: SILVERGEL (ELTA) 45 ML 1 APPLIC TOPICAL (09:08)
[2021-04-29 12:09] LABS: Glucose Point of Care 161 mg/dl (65-105)
[2021-04-29 13:56] VITALS: BP 141/64; PULSE 95; RESP 18; TEMP 36.6; O2SAT 99
[2021-04-29 17:15] LABS: Glucose Point of Care 157 mg/dl (65-105)
[2021-04-29] MEDS: glipiZIDE XL 5 MG TABCR PO (18:05)
[2021-04-29 20:40] VITALS: PULSE 89; RESP 18; O2SAT 100
[2021-04-29 21:19] VITALS: BP 155/78; PULSE 89; RESP 18; TEMP 36.2; O2SAT 100
[2021-04-30 00:30] LABS: Glucose Point of Care 98 mg/dl (65-105)
[2021-04-30 05:56] VITALS: BP 140/66; PULSE 96; RESP 18; TEMP 36.1; O2SAT 99
[2021-04-30 07:05] LABS: Basophils Percent Auto 0.6 % (0.2-1.2); Eosinophils Absolute Auto 0.3 K/mm3 (0-0.3); Eosinophils Percent Auto 3.8 % (0-4.4); Hematocrit 34.8 % (42.0-52.0); Hemoglobin 11.6 g/dL (14.0-18.0); Immature Granulocyte Percent A 1.5 % (0-0.5); Lymphocytes Absolute Auto 1.89 K/mm3 (0.9-3.2); Mean Corpuscular HGB Conc 33.3 g/dl (32-36); Mean Corpuscular Hemoglobin 28.1 pg (26-34); Mean Corpuscular Volume 84.3 fl (80-100); Mean Platelet Volume 10.8 fl (7.4-10.4); Monocytes Absolute Auto 0.9 K/mm3 (0.1-0.6); Monocytes Percent Auto 13.7 % (2.6-8.5); Neutrophils Absolute Auto 3.3 K/mm3 (1.3-6.7); Neutrophils Percent Auto 51.4 % (45.5-73.1); Platelet Count Result 253 k/mm3 (150-375); Red Blood Count 4.13 M/mm3 (4.6-6.20); Red Cell Distribution Width 12.7 % (11.5-14.5); White Blood Count 6.5 K/mm3 (4.5-10.0)
[2021-04-30 07:07] LABS: C-Peptide 1.02 ng/mL (0.80-3.85)
[2021-04-30 07:29] LABS: Alanine Aminotransferase 25 U/L (4-50); Albumin Level 3.2 g/dL (3.5-5.1); Alkaline Phosphatase 91 U/L (38-126); Anion Gap 5 mmol/L (8-16); Aspartate Amino Transferase 41 U/L (17-59); Bilirubin,Total 0.4 mg/dL (0.2-1.3); Blood Urea Nitrogen 4 mg/dL (9-20); Calcium 8.6 mg/dL (8.4-10.2); Carbon Dioxide 25 mmol/L (22-30); Chloride 108 mmol/L (98-107); Estimated CRCL calculation 207 ml/min; Estimated Glomerular Filt Rate > 60; Glucose 143 mg/dL (65-110); Magnesium 1.7 mg/dL (1.6-2.3); Potassium 2.8 mmol/L (3.4-5.0); Sodium 138 mmol/L (137-145)
[2021-04-30 08:00] VITALS: O2SAT 99
[2021-04-30 08:08] LABS: Glucose Point of Care 149 mg/dl (65-105)
[2021-04-30] MEDS: FLUCONAZOLE 100 MG TABLET PO (09:13)
[2021-04-30] MEDS: glipiZIDE XL 5 MG TABCR PO (09:13)
[2021-04-30] MEDS: ENOXAPARIN 40 MG/0.4 ML SYRINGE SUB-Q (09:13)
[2021-04-30] MEDS: metFORMIN HCL 500 MG TABLET 1000 MG PO (09:13)
[2021-04-30] MEDS: SILVERGEL (ELTA) 45 ML 1 APPLIC TOPICAL (09:15)
--- NOTE | 2021-04-30 10:00 | PM.DS ---
DS: Admitting Diagnosis Discharge Date 04/30/21 1000 Admitting Diagnosis New onset diabetes/Pilonidal cyst DS: Discharge Diagnosis Discharge Diagnosis (1) DKA (diabetic ketoacidosis): Qualifiers: Diabetes mellitus complication detail: without coma Diabetes mellitus type: type 2 Qualified Code(s): E11.10 - Type 2 diabetes mellitus with ketoacidosis without coma Code(s): E11.10 - Type 2 diabetes mellitus with ketoacidosis without coma Status: Acute Assessment and Plan: 04/26 transition to basal pre meal and sliding scale insulin 04/26 continue IV fluids until advancement of diet as tolerated Results of C-peptide 1.02 Insulin autoantibodies pending Started metformin and glipizide Glucose looks to be more stable at this time Discharge patient on the oral metformin 1000mg PO BID, and Glipizide XL 5mg PO BID rn diabetes educator saw the patient Will need to follow up with MD post discharge Will also need to follow up with endocrinology post discharge as well (2) Infected pilonidal cyst: Code(s): L05.91 - Pilonidal cyst without abscess Status: Acute Assessment and Plan: Continue vancomycin and Primaxin Will need to change bacterium upon discharge (3) Oral candidiasis: Code(s): B37.0 - Candidal stomatitis Status: Acute Assessment and Plan: White coating on tongue admission currently on oral fluconazole (4) Sepsis: Qualifiers: Sepsis acute organ dysfunction status: without acute organ dysfunction Sepsis type: sepsis due to unspecified organism Qualified Code(s): A41.9 - Sepsis, unspecified organism Code(s): A41.9 - Sepsis, unspecified organism Status: Acute Assessment and Plan: Clinically resolved DS: Summary Hospital Course Hospital Course: Patient is a 69 old male with a past medical history obesity who presented to the ED for tendons on his coccyx. Along with complaints his pain in his coccyx he was also complaining increased thirst and urinary frequency over the last several days. Glucose upon arrival was 452 and his gap was open at 23. A1c was drawn and resulted to 11.3. Patient was placed on an insulin drip and fluids. Glucose was then trended, and he was successfully transitioned to Lantus and aspart. Glucose has remained high, and oral were given. He was seen by the perioperative educator. Oral medications have been adjusted. He is currently not getting any insulin and his glucose has been below 200. Did explain to the patient that he will need good follow up with his primary care provider and will also need to see an tufter operator as well. The perioperative educator did show him how to use his meter and also how to manage the insulin if he should need it. C-Peptide did result to a normal value. He was also started on IV antibiotics for coverage of the abscess. He denies any further complaints of pain. Labs are stable along with vital signs. Potassium was low, replacement was ordered and given. He is ready for discharge. He understands the teaching and has been educated about the diabetes. Status at Discharge Functional status at discharge: independent ambulation Overall status at discharge: patient is progressing back to baseline Time Spent with Patient Time attestation: Total time spent providing and/or coordinating discharge services: 48 minutes Time spent: Greater than 30 minutes Specific discharge activities: Diagnostic testing, chart review, developing a treatment plan, education, care coordination documentation, physical exam, result review Exam Const: General: cooperative, healthy appearing, no acute distress, well developed, alert and awake Nutritional Appearance: well nourished Orientation/consciousness: patient oriented x3 Limitations: no limitations HENMT: Head: normal to inspection Ears: hearing grossly normal bilaterally General nose exam: Normal external nose present Mouth: Yes No
[2021-04-30 11:29] LABS: Glucose Point of Care 142 mg/dl (65-105)
[2021-04-30] MEDS: POTASSIUM CHLORIDE INJ 40 MEQ in SODIUM CHLORIDE 0.9% IV 500 ML 130 MEQ IVPB (12:20)
[2021-04-30] MEDS: POTASSIUM CHLORIDE 20 MEQ TABLET 40 MEQ PO ×2 (12:20→15:33)
[2021-04-30 13:28] LABS: Potassium 3.3 mmol/L (3.4-5.0)
[2021-04-30 14:57] VITALS: BP 153/62; PULSE 59; RESP 16; TEMP 36.4; O2SAT 54
== END 2021-04-30 16:05 | disposition home or self-care (01) | DRG 871 ==
LOC: ANHED 22:04 → ANHICU 23:38 → ANH3MEDSUR 04-28 09:18
PROVIDERS: Internal Medicine; Physician Assistant; Admitting Provider Internal Medicine; Emergency Provider Emergency Medicine; Visit Provider Nurse Practitioner
DX: A41.9 Sepsis, unspecified organism (principal); E11.10 Type 2 diabetes mellitus with ketoacidosis without coma; L05.01 Pilonidal cyst with abscess; B37.0 Candidal stomatitis; R65.20 Severe sepsis without septic shock; Z20.822 Contact with and (suspected) exposure to COVID-19; E66.9 Obesity, unspecified; Z68.31 Body mass index [BMI] 31.0-31.9, adult
CPT/HCPCS: 10061; 36415; 36600; 80048; 80053; 80202; 81001; 82010; 82375; 82805; 82948; 83036; 83050; 83605; 83735; 84100; 84132; 84681; 85025; 85027; 86140; 86337; 87040; 87070; 87205; 96361; 96365; 96366; 96367; 96368; 96372; 96375; 99285; A9270; C9803; G0378; J0743; J1650; J1815; J3370; J3480; J7030; J7040; U0003; U0005

== ENCOUNTER 2021-07-18 10:30 | Outpatient (RCR) | payer BC, SELFPAY ==
[2021-06-17 07:54] VITALS: BMI 32.1
[2021-06-17 07:59] VITALS: BMI 32.1
== END 2021-09-09 17:44 | disposition home or self-care (01) ==
LOC: ANHDMC 10:30
PROVIDERS: PCP Family Medicine; Visit Provider Family Medicine
DX: E11.65 Type 2 diabetes mellitus with hyperglycemia (principal); E11.10 Type 2 diabetes mellitus with ketoacidosis without coma; Z71.3 Dietary counseling and surveillance; Z71.89 Other specified counseling
CPT/HCPCS: 97802; 99199; G0108

== ENCOUNTER 2021-07-31 11:55 | Outpatient (CLI) | payer BC, SELFPAY ==
--- NOTE | ~2021-07-31 | XR_ITS ---
XR chest 2V DATE: 07/31/2021 12:20 INDICATION: Chest pain TECHNIQUE: PA and lateral views COMPARISON: None FINDINGS: Normal heart size. No hilar or mediastinal enlargement. No pulmonary infiltrate or consolidation, pleural effusion or pulmonary vascular congestion or pneumo thorax. IMPRESSION: Negative Reviewed, dictated and finalized at location A. IMPRESSION: Negative
[2021-07-31 12:28] LABS: Basophils Percent Auto 0.2 % (0.2-1.2); Eosinophils Absolute Auto 0.1 K/mm3 (0-0.3); Eosinophils Percent Auto 1.6 % (0-4.4); Hemoglobin 14.2 g/dL (14.0-18.0); Immature Granulocyte Absolute 0.02 K/mm3 (0.00-0.031); Immature Granulocyte Percent A 0.2 % (0-0.5); Lymphocytes Percent Auto 33.6 % (18.3-44.2); Mean Corpuscular Hemoglobin 27.4 pg (26-34); Mean Platelet Volume 10.3 fl (7.4-10.4); Monocytes Absolute Auto 0.8 K/mm3 (0.1-0.6); Monocytes Percent Auto 8.9 % (2.6-8.5); Neutrophils Absolute Auto 4.8 K/mm3 (1.3-6.7); Neutrophils Percent Auto 55.5 % (45.5-73.1); Platelet Count Result 249 k/mm3 (150-375); Red Blood Count 5.18 M/mm3 (4.6-6.20); Red Cell Distribution Width 11.9 % (11.5-14.5); White Blood Count 8.6 K/mm3 (4.5-10.0)
--- NOTE | 2021-07-31 12:35 | ECG_ITS ---
Measurements Intervals [place] Rate: 62 P: 23 NC: 155 QRS: 70 QRSD: 91 T: 54 QT: 382 QTc: 388 Interpretive Statements SINUS RHYTHM ST ELEVATION IN DIFFUSE LEADS- PROBABLY EARLY REPOLARIZATION PATTERN BORDERLINE ECG Electronically Signed On 07-31-2021 13:13:07 CDT by Joseph Barajas D.O.
[2021-07-31 12:38] LABS: Alanine Aminotransferase 29 U/L (4-50); Albumin Level 4.5 g/dL (3.5-5.1); Alkaline Phosphatase 67 U/L (38-126); Anion Gap 6 mmol/L (8-16); Aspartate Amino Transferase 36 U/L (17-59); Bilirubin,Total 0.3 mg/dL (0.2-1.3); Blood Urea Nitrogen 15 mg/dL (9-20); Calcium 9.4 mg/dL (8.4-10.2); Carbon Dioxide 30 mmol/L (22-30); Chloride 105 mmol/L (98-107); Estimated Glomerular Filt Rate > 60; Glucose 81 mg/dL (65-110); Potassium 4.5 mmol/L (3.4-5.0); Sodium 141 mmol/L (137-145)
== END 2021-07-31 11:56 | disposition home or self-care (01) ==
PROVIDERS: PCP Family Medicine; Visit Provider Nurse Practitioner Family
DX: R07.89 Other chest pain (principal); L05.91 Pilonidal cyst without abscess; E11.9 Type 2 diabetes mellitus without complications
CPT/HCPCS: 36415; 71046; 80053; 85025; 93005

== ENCOUNTER 2022-08-21 14:06 | Outpatient (CLI) | payer SELFPAY ==
--- NOTE | ~2022-08-21 | US_ITS ---
US scrotum doppler INDICATION: Benign cyst of the testes TECHNIQUE: Testicular sonogram utilizing grayscale and color Doppler FINDINGS: The testes are normal in size and appearance. No focal lesions are seen. The right testes measures 4.9 x 2.4 x 2.9 centimeters, and the left testis measures 3.3 x 1.5 x 1.8 cm. There is quentin l vascular flow to both testes. There is a 4 mm right epididymal cysts. There is a 2.9 cm left epididymal cyst. There is a moderate left hydrocele. IMPRESSION: 1. Bilateral epididymal cysts, largest on the left measuring 2.9 cm. 2: Moderate left hydrocele. Reviewed, dictated and finalized at location B.
== END 2022-08-21 14:07 | disposition home or self-care (01) ==
PROVIDERS: PCP Family Medicine; Visit Provider Physician Assistant Medical
DX: N44.2 Benign cyst of testis (principal); N43.3 Hydrocele, unspecified
CPT/HCPCS: 76870; 93976

== ENCOUNTER 2023-10-08 08:12 | Inpatient (IN) | payer SELFPAY ==
[2023-10-08] VITALS (11 sets, daily range): BP systolic 116–160; BP diastolic 71–92; PULSE 74–111; RESP 13–22; TEMP 36.5–36.7; O2SAT 94–100; BMI 29.7
--- NOTE | ~2023-10-08 | XR_ITS ---
Clinical Indication: Weakness PA and lateral views of the chest: Comparison: 07/31/2021 Findings: The lungs are clear, without evidence of focal consolidation or pleural effusion. Cardiome diastinal silhouette is within normal limits. Bones and soft tissues are unremarkable. Impression: Normal chest. Reviewed, dictated and finalized at location . Impression: Normal chest.
--- NOTE | 2023-10-08 08:25 | ECG_ITS ---
Test Date: 2023-10-08 08:32:51 Measurements Intervals [place] Rate: 106 P: 51 VA: 154 QRS: 56 QRSD: 98 T: 25 QT: 322 QTc: 428 Interpretive Statements SINUS TACHYCARDIA POSSIBLE LEFT ATRIAL ENLARGEMENT INCOMPLETE RIGHT BUNDLE BRANCH BLOCK ST ELEVATION IN DIFFUSE LEADS- PROBABLY EARLY REPOLARIZATION BASELINE ARTIFACT- I, II, III, AVR, AVL, AVF ABNORMAL ECG No previous ECG available for comparison Electronically Signed On 10-08-2023 12:43:20 CDT by Joseph Barajas D.O.
[2023-10-08 08:32] LABS: Glucose Point of Care 468 mg/dl (65-105)
[2023-10-08 08:41] LABS: Basophils Absolute Auto 0.1 K/mm3 (0.0-0.1); Eosinophils Absolute Auto 0.2 K/mm3 (0-0.3); Eosinophils Percent Auto 2.5 % (0-4.4); Hematocrit 48.5 % (42.0-52.0); Hemoglobin 16.2 g/dL (14.0-18.0); Immature Granulocyte Percent A 1.4 % (0-0.5); Lymphocytes Percent Auto 26.2 % (18.3-44.2); Mean Corpuscular HGB Conc 33.4 g/dl (32-36); Mean Corpuscular Hemoglobin 27.6 pg (26-34); Mean Corpuscular Volume 82.8 fl (80-100); Mean Platelet Volume 11.5 fl (7.4-10.4); Monocytes Absolute Auto 0.8 K/mm3 (0.1-0.6); Neutrophils Absolute Auto 4.2 K/mm3 (1.3-6.7); Neutrophils Percent Auto 57.9 % (45.5-73.1); Platelet Count Result 223 k/mm3 (150-375); Red Blood Count 5.86 M/mm3 (4.6-6.20); Red Cell Distribution Width 14.4 % (11.5-14.5); White Blood Count 7.3 K/mm3 (4.5-10.0)
[2023-10-08 09:05] LABS: Alanine Aminotransferase 19 U/L (6-50); Albumin Level 4.8 g/dL (3.5-5.1); Alkaline Phosphatase 164 U/L (38-126); Anion Gap 23 mmol/L (4-12); Aspartate Amino Transferase 22 U/L (17-59); Bilirubin,Total 0.9 mg/dL (0.2-1.3); Blood Urea Nitrogen 12 mg/dL (9-20); Calcium 9.8 mg/dL (8.4-10.2); Carbon Dioxide 12 mmol/L (22-30); Chloride 99 mmol/L (98-107); Estimated CRCL calculation 100 ml/min; Estimated Glomerular Filt Rate > 60; Glucose 404 mg/dL (65-110); Potassium 4.8 mmol/L (3.4-5.0); Sodium 134 mmol/L (137-145)
[2023-10-08] MEDS: SODIUM CHLORIDE 0.9% IV 1,000 ML 999 ML IV CONT ×2 (09:27→09:29)
[2023-10-08 09:31] LABS: Fractional Inspired Oxygen 21 %; HCO3 VBG 10.4 mEq/l (24.0-30.0); PO2 VBG 39.2 mmHg (35.0-45.0)
[2023-10-08 09:32] LABS: pH VBG 7.205 (7.300-7.400)
[2023-10-08 09:33] LABS: PCO2 VBG 26.8 mmHg (42.0-48.0)
--- NOTE | 2023-10-08 09:38 | ED.GENADULT ---
HPI - General Adult General Chief complaint: Weakness Stated complaint: weak Time Seen by Provider: 10/08/23 08:54 History of Present Illness HPI narrative: Benedicto Santizo is a 33 y/o male who presents today wt reports of feeling generalized weak/ tired/ thirsty feeling dehydrated for about a week. He states that he has a hx of DM, he was admitted here Mar 2021 for DKA he was on Metformin but states he was having episodes of hypoglycemia and taken off of the Metformin. He states he has been dieting and exercising to improve his blood sugar. Also reports of nausea / no abdominal pain. Related Data Allergies Allergy/AdvReac Type Severity Reaction Status Date / Time No Known Allergies Allergy Verified 08/03/22 08:20 Review of Systems Review of Systems: CONSTITUTIONAL: Denies chills, or sweats. EYES: Denies visual changes, redness, or discharge. ENT: Denies rhinorrhea, congestion, sore throat, or otalgia. CARDIOVASCULAR: Denies chest pain, palpitations, or edema. RESPIRATORY: Reports maybe feeling a little sort of breath GASTROINTESTINAL: Denies abdominal pain, Reports having a little nausea, NO vomiting, or diarrhea. GENITOURINARY: Denies dysuria or hematuria. SKIN: Denies rash or itching. MUSCULOSKELETAL: Denies back pain, joint pain, or myalgia. NEUROLOGIC: Denies headache, numbness, dizziness, or weakness. PSYCHIATRIC: Denies anxiety or depression. ROS unobtainable: No unobtainable due to endotracheal tube PMFSH Past Medical History Medical History Anxiety Diabetes mellitus Elevated BP without diagnosis of hypertension Surgical History Surgical History No pertinent past surgical history Family History Family History Mother Healthy female Hypertension Father Healthy adult Sibling No problems noted. Social History Social History Social History: Patient is single and does not have any children. 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 He occasionally drinks alcohol and only in moderation. He is a lifelong nonsmoker and denies illicit substance use. 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 HEAD: Normocephalic, atraumatic. EYES: PERRLA and EOMI. ENT: Nares clear, no rhinorrhea or epistaxis. Mucous membranes DRY Oropharynx without tonsillar hypertrophy exudate or other lesions. NECK: Supple. No adenopathy or masses. No carotid bruits or JVD CHEST: Clear to auscultation. No respiratory distress. No wheezes rales or rhonchi HEART: Regular rate and rhythm. No murmur heard. Normal peripheral pulses. ABDOMEN: Soft, nontender, nondistended, normal active bowel sounds. EXTREMITIES: Normal range of motion. No edema. SKIN: Warm, dry, no rash. NEURO: No focal deficits. Alert and oriented x3. PSYCH: Normal mood and affect. Course Vital Signs Vital signs: Vital Signs Temperature 36.7 C 10/08/23 08:22 Pulse Rate 111 H 10/08/23 08:22 Respiratory Rate 16 10/08/23 08:22 Blood Pressure 152/92 H 10/08/23 08:22
[2023-10-08 09:52] LABS: Magnesium 1.8 mg/dL (1.6-2.3); Phosphorus 3.4 mg/dL (2.5-4.5)
[2023-10-08 09:54] LABS: Hemoglobin A1C > 14.0 % (<5.7)
[2023-10-08 10:00] LABS: Glucose Point of Care 393 mg/dl (65-105)
[2023-10-08] MEDS: INSULIN HUMAN REGULAR (*BKC) 100 UNITS in SODIUM CHLORIDE 0.9% IV 99 ML 9.5 UNITS IV CONT (10:01)
[2023-10-08 10:24] LABS: Beta-Hydroxybutyrate/Acetoacetate 8.54 mmol/L (0.02-0.27)
[2023-10-08 10:37] LABS: Anion Gap 19 mmol/L (4-12); Blood Urea Nitrogen 11 mg/dL (9-20); Calcium 8.7 mg/dL (8.4-10.2); Carbon Dioxide 11 mmol/L (22-30); Chloride 103 mmol/L (98-107); Estimated CRCL calculation 121 ml/min; Estimated Glomerular Filt Rate > 60; Glucose 373 mg/dL (65-110); Potassium 4.5 mmol/L (3.4-5.0); Sodium 133 mmol/L (137-145)
--- NOTE | 2023-10-08 10:41 | WPDCNINT ---
Assessment and Plan Assessment and plan (1) DKA (diabetic ketoacidosis): Qualifiers: Diabetes mellitus type: type 2 Diabetes mellitus complication detail: without coma Qualified Code(s): E11.10 - Type 2 diabetes mellitus with ketoacidosis without coma Code(s): E11.10 - Type 2 diabetes mellitus with ketoacidosis without coma Status: Acute Assessment and Plan: No objective signs of infection Patient is being given IVF bolus and and will be started on infusion Patient started on Insulin infusion and Q1H glucose monitoring Serial labs will be done Replace electrolytes as needed Will transition to SC insulin once AG is closed Start clear liquid diet and advance as tolerated as patient is asymptomatic Plan DVT prophylaxis -SCDs Nutrition -clear liquid diet which will be administered diabetic diet as tolerated Code Status - Full Code Shoe Planner Consult Note Consult date: 10/08/23 Reason for consult: DKA HPI: Benedicto Santizo Jr. is a 33 year old male with past medical history of diabetes who was diagnosed with diabetes in 2021 after an episode of DKA. Patient was started on metformin and glipizide at that time upon discharge. Patient states that he got better and lost weight and quit taking his medications in 2021. He presented today to ER with with multiple complaints the started almost a week ago. He states that he has been feeling weak. He has had dry mouth despite drinking lot of water and Gatorade all day. He has been feeling thirsty all day. He complains of polyuria and frequent micturition but no dysuria. He also states that he has been waking up at night to go to the bathroom. He did had some nausea but no vomiting. Denies any chest pain abdominal pain shortness a breath fever cough. He states his appetite has been good but he has lost some weight although he was unable to quantify. All other systems were reviewed and negative. Workup in the ER showed normal WBC. Chest x-ray was unremarkable. VBG showed pH 7.2/26/39/10.4 BMP showed blood sugar of 404, anion gap 23 carbon dioxide 12, HbA1c of more than 14 and beta hydroxybutyrate of 8.54 Patient diagnosed with DKA and is being started on IV insulin infusion will be admitted to ICU. Review of Systems Review of Systems: All systems reviewed & are unremarkable except as noted in HPI and below (HPI) [facility] Past Medical History Medical History BMI 32.0-32.9,adult BMI 34.0-34.9,adult Diabetes mellitus Obesity (BMI 30-39.9) Surgical History Surgical History No pertinent past surgical history Family History Family History Mother Healthy female Hypertension Father Healthy adult Sibling No problems noted. Social History Social History Social History: Patient is single and does not have any children. 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 He occasionally drinks alcohol and only in moderation. He is a lifelong nonsmoker and denies illicit substance use. 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
[2023-10-08 11:06] LABS: Glucose Point of Care 352 mg/dl (65-105)
[2023-10-08 11:35] LABS: Appearance Urine Clear (Clear); Bacteria Urine None Seen /hpf; Bilirubin Urine Negative (Negative); Blood Urine Non-Hemolyzed Trace (Negative); Color Urine Yellow (Yellow); Glucose Urine UA 3+ mg/dL (Negative); Ketones Urine 4+ mg/dL (Negative); Leukocyte Esterase Ur Negative LEU/UL (Negative); Need Manual Microscopic Reviewed; Nitrate Urine Negative (Negative); Protein Urine 1+ mg/dL (Negative); Specific Grav Ur 1.029 (1.001-1.035); Squamous Epithelial Cell Urine None Seen /hpf (Few); Urobilinogen Urine 0.2 mg/dL (<2.0); WBC Urine 0-5 /hpf (0-3); pH Urine 5.5 (5.0-9.0)
[2023-10-08 11:36] LABS: Add Urine Microscopic? YES
--- NOTE | 2023-10-08 11:53 | ADMGEN ---
This patient, Benedicto Santizo Jr., was admitted to Intensive Care Unit-3. Patient/family oriented to hospital policies and general routines including ID bracelet, bed and alarms, visiting hours, pain management, procedures, bathroom and other care routines, personal items, smoking policy, room service/diet, and visiting hours. Information on how to activate the Rapid Response Team has been discussed. Patient/Family are encouraged to report perceived risks to care and to ask questions if they do not understand what they are told or what they should do.
[2023-10-08] MEDS: SODIUM CHLORIDE 0.9% IV 1,000 ML 150 ML IV CONT (12:10)
[2023-10-08 12:20] LABS: Glucose Point of Care 302 mg/dl (65-105)
[2023-10-08 13:05] LABS: Glucose Point of Care 251 mg/dl (65-105)
--- NOTE | 2023-10-08 13:25 | PM.IMHP ---
H&P: HPI History of Present Illness Date/Time: 10/08/23 13:25 Chief Complaint: Nausea Dehydration Narrative: 33 y/o M presents here with nausea, vomiting, diarrhea, and dehydration with PMH of DM2. The patient presents here from home for further evaluation of nausea, dehydration, and weakness. Initially started with dehydration and dry mouth around 1 week ago. No precipitating illnesses. Then developed nausea without vomiting and dizziness 2-3 days ago. Patient does not currently take nay medications for his diabetes for the past year. Diabetes was initially controlled with insulin and oral medications when he was first diagnosed, later able to come off the medications due to diet/exercise. Last episode of DKA in Mar 2021. Endorses mild weight loss (did not weight self so unknown amount), polydipsia, polyuria, and fatigue. Denies excessive hunger. Last PCP visit was one year ago. Denies fever, chills, or body aches. Initial VS at presentation: 98? F, HR 111, RR 16, 152/92, and 100% on RA. ED workup showed: no leukocytosis, no anemia, creatinine 1.1 and GFR >60, glucose 404, gap 23, A1C greater than 14, beta hydroxy 8.54. CXR showed normal chest. Review of Systems Review of Systems: All systems reviewed & are unremarkable except as noted in HPI and below PMFSH Past Medical History Medical History Anxiety Diabetes mellitus Elevated BP without diagnosis of hypertension Surgical History Surgical History No pertinent past surgical history Family History Family History Mother Healthy female Hypertension Father Healthy adult Sibling No problems noted. Social History Social History Social History: Patient is single and does not have any children. 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 He occasionally drinks alcohol and only in moderation. He is a lifelong nonsmoker and denies illicit substance use. 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 Gender identity (if verbalized by the patient): Male Spiritual care concerns: No Meds Home Medications and Allergies Home Medications Medication Instructions Recorded Confirmed Type blood-glucose meter (OneTouch #1 pkg 04/30/21 10/08/23 Rx Verio Flex Meter) lancets 30 gauge (OneTouch Delica #1 pkg 08/03/22 10/08/23 Rx Plus Lancet) blood sugar diagnostic (OneTouch #1 pkg 08/04/22 10/08/23 Rx Verio test strips) Allergies Allergy/AdvReac Type Severity Reaction Status Date / Time No Known Allergies Allergy Verified 08/03/22 08:20 Vital Signs Vital Signs - 24 hr 10/08/23 08:22 10/08/23 09:45 10/08/23 10:15 Temperature 98.0 F Pulse Rate 111 H 76 91 Respiratory Rate 16 16 20 Blood Pressure 152/92 H 130/79 142/80 H Pulse Oximetry 100 94 100 Oxygen Delivery Room Air 10/08/23 11:30 10/08/23 11:59 10/08/23 12:00 Temperature 98.0 F Pulse Rate 88 88 Respiratory Rate 16 16 Blood Pressure 131/77 160/82 H Pulse Oximetry 100 100 Oxygen Delivery Room Air 10/08/23 12:00 Temperature Pulse Rate 75 Respiratory Rate Blood Pressure Pulse Oximetry Oxygen Delivery
[2023-10-08 13:30] LABS: MRSA (PCR) NOT DETECTED (NOT DETECTE)
[2023-10-08] MEDS: KCL 20 MEQ/D5/0.45% SOD CHL 1,000 ML 150 ML IV CONT (14:09)
[2023-10-08 14:14] LABS: Glucose Point of Care 199 mg/dl (65-105)
[2023-10-08 15:14] LABS: Glucose Point of Care 203 mg/dl (65-105)
[2023-10-08 15:42] LABS: Anion Gap 17 mmol/L (4-12); Blood Urea Nitrogen 9 mg/dL (9-20); Calcium 8.8 mg/dL (8.4-10.2); Carbon Dioxide 11 mmol/L (22-30); Chloride 107 mmol/L (98-107); Estimated CRCL calculation 153 ml/min; Estimated Glomerular Filt Rate > 60; Glucose 189 mg/dL (65-110); Potassium 3.6 mmol/L (3.4-5.0); Sodium 135 mmol/L (137-145)
--- NOTE | 2023-10-08 15:47 | PC.NURSE ---
Updated Dr. Bingham on pt's Anion Gap of 17. New order of 40meq PO K+ for K level of 3.6. Increase IVF to 200ml/hr. Call with next BMP in 4 hours.
[2023-10-08] MEDS: POTASSIUM CHLORIDE 20 MEQ ER TABLET 40 MEQ PO (16:06)
[2023-10-08 16:12] LABS: Glucose Point of Care 212 mg/dl (65-105)
[2023-10-08 17:05] LABS: Glucose Point of Care 218 mg/dl (65-105)
[2023-10-08 18:07] LABS: Glucose Point of Care 219 mg/dl (65-105)
[2023-10-08 18:42] LABS: Anion Gap 15 mmol/L (4-12); Blood Urea Nitrogen 8 mg/dL (9-20); Calcium 8.5 mg/dL (8.4-10.2); Carbon Dioxide 13 mmol/L (22-30); Chloride 105 mmol/L (98-107); Estimated CRCL calculation 153 ml/min; Estimated Glomerular Filt Rate > 60; Glucose 229 mg/dL (65-110); Potassium 3.9 mmol/L (3.4-5.0); Sodium 133 mmol/L (137-145)
[2023-10-08 18:59] LABS: Glucose Point of Care 235 mg/dl (65-105)
--- NOTE | 2023-10-08 19:00 | PC.NURSE ---
Updated Dr. Bingham on pt's Anion Gap of 15. New order to call if Gap is closed on 2200 BMP. If Gap isn't closed just leave the drip run until morning.
[2023-10-08 20:12] LABS: Glucose Point of Care 277 mg/dl (65-105)
[2023-10-08 21:07] LABS: Glucose Point of Care 250 mg/dl (65-105)
[2023-10-08] MEDS: KCL 20 MEQ/D5/0.45% SOD CHL 1,000 ML 200 ML IV CONT (21:09)
[2023-10-08 22:08] LABS: Glucose Point of Care 217 mg/dl (65-105)
[2023-10-08 22:40] LABS: Anion Gap 16 mmol/L (4-12); Blood Urea Nitrogen 7 mg/dL (9-20); Calcium 8.7 mg/dL (8.4-10.2); Carbon Dioxide 14 mmol/L (22-30); Chloride 104 mmol/L (98-107); Estimated CRCL calculation 153 ml/min; Estimated Glomerular Filt Rate > 60; Glucose 248 mg/dL (65-110); Potassium 3.6 mmol/L (3.4-5.0); Sodium 134 mmol/L (137-145)
[2023-10-08 23:15] LABS: Glucose Point of Care 260 mg/dl (65-105)
[2023-10-09] VITALS (12 sets, daily range): BP systolic 121–135; BP diastolic 69–85; PULSE 74–93; RESP 15–21; TEMP 36.4–36.9; O2SAT 94–100
[2023-10-09 00:13] LABS: Glucose Point of Care 308 mg/dl (65-105)
[2023-10-09 01:36] LABS: Glucose Point of Care 309 mg/dl (65-105)
[2023-10-09] MEDS: KCL 20 MEQ/D5/0.45% SOD CHL 1,000 ML 200 ML IV CONT ×2 (02:04→07:16)
[2023-10-09 02:10] LABS: Glucose Point of Care 343 mg/dl (65-105)
[2023-10-09 03:12] LABS: Glucose Point of Care 314 mg/dl (65-105)
[2023-10-09 04:14] LABS: Glucose Point of Care 302 mg/dl (65-105)
[2023-10-09 04:17] LABS: Basophils Absolute Auto 0.1 K/mm3 (0.0-0.1); Eosinophils Absolute Auto 0.2 K/mm3 (0-0.3); Eosinophils Percent Auto 3.4 % (0-4.4); Hematocrit 40.7 % (42.0-52.0); Hemoglobin 13.5 g/dL (14.0-18.0); Immature Granulocyte Absolute 0.05 K/mm3 (0.00-0.031); Lymphocytes Absolute Auto 1.77 K/mm3 (0.9-3.2); Lymphocytes Percent Auto 35.4 % (18.3-44.2); Mean Corpuscular HGB Conc 33.2 g/dl (32-36); Mean Corpuscular Hemoglobin 27.6 pg (26-34); Mean Corpuscular Volume 83.1 fl (80-100); Monocytes Absolute Auto 0.6 K/mm3 (0.1-0.6); Monocytes Percent Auto 11.2 % (2.6-8.5); Neutrophils Absolute Auto 2.4 K/mm3 (1.3-6.7); Nucleated Red Blood Cells Perc 1.6 % (0.0-0.2); Platelet Count Result 148 k/mm3 (150-375); Red Cell Distribution Width 14.6 % (11.5-14.5)
[2023-10-09] MEDS: INSULIN HUMAN REGULAR (*BKC) 100 UNITS in SODIUM CHLORIDE 0.9% IV 99 ML 10 UNITS IV CONT (04:45)
[2023-10-09 05:01] LABS: Alanine Aminotransferase 15 U/L (6-50); Albumin Level 3.7 g/dL (3.5-5.1); Alkaline Phosphatase 99 U/L (38-126); Anion Gap 15 mmol/L (4-12); Aspartate Amino Transferase 21 U/L (17-59); Bilirubin,Total 0.6 mg/dL (0.2-1.3); Blood Urea Nitrogen 6 mg/dL (9-20); Calcium 8.8 mg/dL (8.4-10.2); Carbon Dioxide 11 mmol/L (22-30); Chloride 107 mmol/L (98-107); Estimated CRCL calculation 153 ml/min; Estimated Glomerular Filt Rate > 60; Glucose 295 mg/dL (65-110); Magnesium 1.9 mg/dL (1.6-2.3); Potassium 3.3 mmol/L (3.4-5.0); Sodium 133 mmol/L (137-145)
[2023-10-09 06:17] LABS: Glucose Point of Care 253 mg/dl (65-105)
[2023-10-09 07:21] LABS: Glucose Point of Care 224 mg/dl (65-105)
[2023-10-09] MEDS: POTASSIUM CHLORIDE 20 MEQ PACKET (FOR LIQUID) 40 MEQ PO ×2 (08:12→11:06)
[2023-10-09 08:15] LABS: Glucose Point of Care 226 mg/dl (65-105)
--- NOTE | 2023-10-09 08:51 | WPDINTPN ---
Progress Note: A&P Assessment and Plan (1) DKA (diabetic ketoacidosis): Qualifiers: Diabetes mellitus type: type 2 Diabetes mellitus complication detail: without coma Qualified Code(s): E11.10 - Type 2 diabetes mellitus with ketoacidosis without coma Code(s): E11.10 - Type 2 diabetes mellitus with ketoacidosis without coma Status: Acute Assessment and Plan: No objective signs of infection chest x-ray UA negative Patient was given IVF bolus and and is on infusion Patient started on Insulin infusion and Q1H glucose monitoring and will be continued Serial labs are being done Potassium replacement ordered Will transition to SC insulin once AG is closed which has not till now Continue diet Patient was seen by dietitian and elementary educator (2) Electrolyte abnormality: Code(s): E87.8 - Other disorders of electrolyte and fluid balance, not elsewhere classified Status: Acute Assessment and Plan: Potassium replacement ordered Plan DVT prophylaxis -SCDs. Patient ambulating Nutrition -consistent carbohydrate diet Code Status - Full Code Subjective Date/time seen: 10/09/23 Overnight events reviewed. Afebrile Continues to be insulin infusion Asymptomatic and tolerating p.o. diet. Denies any complaints and slept well Patient denies fever, chest pain, shortness of breath, cough, nausea vomiting, abdominal pain,, diarrhea, headache or constipation. All other systems were reviewed and were negative Sinus rhythm on the monitor. Good urine output Other Vitals acceptable Review of Systems Review of Systems: All systems reviewed & are unremarkable except as noted in HPI and below (HPI) Exam Narrative: General: Pt is alert awake and in NAD Lungs/Chest: Trachea central Clear BS B/L, No crackles or wheezing. Cardiac: RRR. Normal S1 S2. No murmurs Circulation: Pedal pulses are intact and symmetrical. Abdomen: Normal bowel sounds obese Soft. NT. ND. Extremities: No clubbing, cyanosis or edema. Warm : Hernandez in place Neurologic: Follows commands. Moves all 4 extremities PERRL AO x3 Skin: No Rash Objective Data Vital Signs Vital Signs: Vital Signs - 24 hr 10/08/23 09:45 10/08/23 10:15 10/08/23 11:30 Temperature Pulse Rate 76 91 88 Respiratory Rate 16 20 16 Blood Pressure 130/79 142/80 H 131/77 Pulse Oximetry 94 100 100 Oxygen Delivery 10/08/23 11:59 10/08/23 12:00 10/08/23 12:00 Temperature 36.7 C Pulse Rate 88 75 Respiratory Rate 16 Blood Pressure 160/82 H Pulse Oximetry 100 Oxygen Delivery Room Air 10/08/23 14:00 10/08/23 14:00 10/08/23 16:00 Temperature 36.5 C Pulse Rate 85 85 97 Respiratory Rate 16 13 Blood Pressure 128/82 122/71 Pulse Oximetry 98 100 Oxygen Delivery 10/08/23 16:00 10/08/23 16:00 10/08/23 18:00 Temperature Pulse Rate 101 H 80 Respiratory Rate Blood Pressure Pulse Oximetry Oxygen Delivery Room Air 10/08/23 18:00 10/08/23 20:00 10/08/23 22:00 Temperature Pulse Rate 86 83 76 Respiratory Rate 19 21 H 22 H Blood Pressure 126/81 134/77 116/73 Pulse Oximetry 100 99 Oxygen Delivery 10/08/23 20:00 10/08/23 20:00 10/08/23 22:00 Temperature Pulse Rate 74 76 Respiratory Rate Blood Pressure Pulse Oximetry 100 Oxygen Delivery Room Air 10/09/23 00:00 10/09/23 00:00 10/09/23 00:00 Temperature 36.5 C Pulse Rate 82 82 Respiratory Rate 20 Blood Pressure 135/78 Pulse Oximetry 100 100 Oxygen Delivery Room Air 10/09/23 02:00 10/09/23 02:00 10/09/23 04:00 Temperature Pulse Rate 83 83 76 Respiratory Rate 19 Blood Pressure 127/72 Pulse Oximetry 100 Oxygen Delivery 10/09/23 04:00 10/09/23 04:00 10/09/23 03:00 Temperature 36.6 C Pulse Rate 76 77 Respiratory Rate 21 H 20 Blood Pressure 131/80 123/69 Pulse Oximetry 100 100 99 Oxygen Delivery Room Air 10/09/23 06:00 10/09/23 06:00 Temperature 36.4 C L Pulse
[2023-10-09 09:42] LABS: Glucose Point of Care 201 mg/dl (65-105)
[2023-10-09 11:13] LABS: Glucose Point of Care 168 mg/dl (65-105)
[2023-10-09 11:47] LABS: Anion Gap 10 mmol/L (4-12); Blood Urea Nitrogen 5 mg/dL (9-20); Calcium 9.1 mg/dL (8.4-10.2); Carbon Dioxide 21 mmol/L (22-30); Chloride 106 mmol/L (98-107); Estimated CRCL calculation 153 ml/min; Estimated Glomerular Filt Rate > 60; Glucose 164 mg/dL (65-110); Potassium 3.8 mmol/L (3.4-5.0); Sodium 137 mmol/L (137-145)
[2023-10-09] MEDS: INSULIN GLARGINE (*BKC) 100 UNITS/ML 20 UNITS SUB-Q (12:18)
[2023-10-09] MEDS: INSULIN ASPART (*BKC) 100 UNITS/ML SUB-Q ×4 (12:19→20:28)
[2023-10-09 12:27] LABS: Glucose Point of Care 171 mg/dl (65-105)
[2023-10-09 13:13] LABS: Glucose Point of Care 167 mg/dl (65-105)
--- NOTE | 2023-10-09 14:12 | PM.IMPN ---
Progress Note: A&P Assessment and Plan (1) DKA (diabetic ketoacidosis): Qualifiers: Diabetes mellitus type: type 2 Diabetes mellitus complication detail: without coma Qualified Code(s): E11.10 - Type 2 diabetes mellitus with ketoacidosis without coma Code(s): E11.10 - Type 2 diabetes mellitus with ketoacidosis without coma Status: Acute Assessment and Plan: No objective signs of infection chest x-ray UA negative Patient was given IVF bolus and and is on infusion Patient started on Insulin infusion and Q1H glucose monitoring and will be continued Serial labs are being done Potassium replacement ordered transitioned to SC insulin once AG is closed this afternoon Continue diet Patient was seen by dietitian and assistant health educator (2) Electrolyte abnormality: Code(s): E87.8 - Other disorders of electrolyte and fluid balance, not elsewhere classified Status: Acute Assessment and Plan: Potassium replacement ordered Plan DVT prophylaxis -SCDs. Patient ambulating Nutrition -consistent carbohydrate diet Code Status - Full Code Subjective Date/time seen: 10/09/23 14:12 Interval history: feels well. he is getting transition to Lantus. No new complaints. A1c more than 14 Review of Systems Review of Systems: All systems reviewed & are unremarkable except as noted in HPI and below (HPI) Exam Narrative: General: Pt is alert awake and in NAD Lungs/Chest: Trachea central Clear BS B/L, No crackles or wheezing. Cardiac: RRR. Normal S1 S2. No murmurs Circulation: Pedal pulses are intact and symmetrical. Abdomen: Normal bowel sounds obese Soft. NT. ND. Extremities: No clubbing, cyanosis or edema. Warm : Hernandez in place Neurologic: Follows commands. Moves all 4 extremities PERRL AO x3 Skin: No Rash Objective Data Vital Signs Vital Signs: Vital Signs - 24 hr 10/08/23 16:00 10/08/23 16:00 10/08/23 16:00 Temperature 97.7 F Pulse Rate 97 101 H Respiratory Rate 13 Blood Pressure 122/71 Pulse Oximetry 100 Oxygen Delivery Room Air 10/08/23 18:00 10/08/23 18:00 10/08/23 20:00 Temperature Pulse Rate 80 86 83 Respiratory Rate 19 21 H Blood Pressure 126/81 134/77 Pulse Oximetry 100 Oxygen Delivery 10/08/23 22:00 10/08/23 20:00 10/08/23 20:00 Temperature Pulse Rate 76 74 Respiratory Rate 22 H Blood Pressure 116/73 Pulse Oximetry 99 100 Oxygen Delivery Room Air 10/08/23 22:00 10/09/23 00:00 10/09/23 00:00 Temperature 97.7 F Pulse Rate 76 82 82 Respiratory Rate 20 Blood Pressure 135/78 Pulse Oximetry 100 Oxygen Delivery 10/09/23 00:00 10/09/23 02:00 10/09/23 02:00 Temperature Pulse Rate 83 83 Respiratory Rate 19 Blood Pressure 127/72 Pulse Oximetry 100 100 Oxygen Delivery Room Air 10/09/23 04:00 10/09/23 04:00 10/09/23 04:00 Temperature 97.9 F Pulse Rate 76 76 Respiratory Rate 21 H Blood Pressure 131/80 Pulse Oximetry 100 100 Oxygen Delivery Room Air 10/09/23 03:00 10/09/23 06:00 10/09/23 06:00 Temperature 97.5 F L Pulse Rate 77 84 84 Respiratory Rate 20 20 Blood Pressure 123/69 126/79 Pulse Oximetry 99 99 Oxygen Delivery 10/09/23 10:00 10/09/23 08:00 10/09/23 10:00 Temperature 97.7 F Pulse Rate 74 77 74 Respiratory Rate 19 18 Blood Pressure 127/77 125/85 Pulse Oximetry 94 96 Oxygen Delivery 10/09/23 08:00 10/09/23 12:00 10/09/23 12:00 Temperature Pulse Rate 77 88 88 Respiratory Rate 19 15 Blood Pressure 123/85 Pulse Oximetry 94 97 Oxygen Delivery Room Air 10/09/23 12:00 Temperature Pulse Rate 88 Respiratory Rate 15 Blood Pressure Pulse Oximetry 97 Oxygen Delivery Room Air Intake/Output Intake/Output: Intake & Output 10/06/23 10/07/23 10/08/23 10/09/23 23:59 23:59 23:59 23:59 Intake Total 3757.7 2997.3 Output Total 700 1100 Balance 3057.7 1897.3 Meds/Results Medications: Active
--- NOTE | 2023-10-09 15:40 | PC.NURSE ---
This patient, Benedicto Santizo Jr., was transferred to [facility] on 10/09/23 at 1540. Personal belongings sent with patient. Report given to Sraah. Appropriate documentation sent with patient.
--- NOTE | 2023-10-09 15:46 | PC.NURSE ---
Addendum entered by Sarah Gerber RN 10/09/23 15:48: Pt received from ICU 7 Original Note: This patient, Benedicto Nichole Sukhdev Ash., was received from ICU 8 on 10/09/23 at 1546. Patient/family oriented to unit policies and routines.
[2023-10-09 16:53] LABS: Glucose Point of Care 249 mg/dl (65-105)
[2023-10-09 20:21] LABS: Glucose Point of Care 342 mg/dl (65-105)
[2023-10-10 05:59] LABS: Basophils Absolute Auto 0.1 K/mm3 (0.0-0.1); Basophils Percent Auto 0.9 % (0.2-1.2); Eosinophils Absolute Auto 0.2 K/mm3 (0-0.3); Eosinophils Percent Auto 3.4 % (0-4.4); Hematocrit 39.2 % (42.0-52.0); Immature Granulocyte Absolute 0.08 K/mm3 (0.00-0.031); Immature Granulocyte Percent A 1.4 % (0-0.5); Lymphocytes Absolute Auto 2.28 K/mm3 (0.9-3.2); Lymphocytes Percent Auto 38.9 % (18.3-44.2); Mean Corpuscular HGB Conc 33.2 g/dl (32-36); Mean Corpuscular Hemoglobin 27.1 pg (26-34); Mean Corpuscular Volume 81.8 fl (80-100); Mean Platelet Volume 10.8 fl (7.4-10.4); Monocytes Absolute Auto 0.6 K/mm3 (0.1-0.6); Monocytes Percent Auto 10.8 % (2.6-8.5); Neutrophils Absolute Auto 2.6 K/mm3 (1.3-6.7); Neutrophils Percent Auto 44.6 % (45.5-73.1); Platelet Count Result 159 k/mm3 (150-375); Red Blood Count 4.79 M/mm3 (4.6-6.20); Red Cell Distribution Width 14.6 % (11.5-14.5); White Blood Count 5.9 K/mm3 (4.5-10.0)
[2023-10-10 06:11] LABS: Alanine Aminotransferase 17 U/L (6-50); Albumin Level 3.7 g/dL (3.5-5.1); Alkaline Phosphatase 95 U/L (38-126); Anion Gap 15 mmol/L (4-12); Aspartate Amino Transferase 26 U/L (17-59); Bilirubin,Total 0.9 mg/dL (0.2-1.3); Blood Urea Nitrogen 8 mg/dL (9-20); Calcium 9.4 mg/dL (8.4-10.2); Carbon Dioxide 16 mmol/L (22-30); Chloride 103 mmol/L (98-107); Estimated CRCL calculation 153 ml/min; Estimated Glomerular Filt Rate > 60; Glucose 300 mg/dL (65-110); Magnesium 1.7 mg/dL (1.6-2.3); Potassium 3.8 mmol/L (3.4-5.0); Sodium 134 mmol/L (137-145)
[2023-10-10 08:31] LABS: Glucose Point of Care 313 mg/dl (65-105)
[2023-10-10] MEDS: INSULIN ASPART (*BKC) 100 UNITS/ML SUB-Q ×4 (08:31→21:16)
[2023-10-10] MEDS: INSULIN GLARGINE (*BKC) 100 UNITS/ML 26 UNITS SUB-Q (08:34)
[2023-10-10 08:47] VITALS: BP 123/75; PULSE 86; RESP 16; TEMP 36.5; O2SAT 100
[2023-10-10] MEDS: INSULIN ASPART (*BKC) 100 UNITS/ML 8 UNITS SUB-Q ×2 (12:02→17:06)
[2023-10-10 12:03] LABS: Glucose Point of Care 354 mg/dl (65-105)
--- NOTE | 2023-10-10 12:39 | PM.IMPN ---
Progress Note: A&P Assessment and Plan (1) DKA (diabetic ketoacidosis): Qualifiers: Diabetes mellitus type: type 2 Diabetes mellitus complication detail: without coma Qualified Code(s): E11.10 - Type 2 diabetes mellitus with ketoacidosis without coma Code(s): E11.10 - Type 2 diabetes mellitus with ketoacidosis without coma Status: Acute Assessment and Plan: No objective signs of infection chest x-ray UA negative Patient was given IVF bolus and and is on infusion Patient started on Insulin infusion and Q1H glucose monitoring and will be continued Serial labs are being done Potassium replacement ordered transitioned to SC insulin once AG is closed delete Continue diet Patient was seen by dietitian and nurse informatics educator Gap open this a.m. again. Increase insulin and recheck again this afternoon Will also check for insulin antibodies (2) Electrolyte abnormality: Code(s): E87.8 - Other disorders of electrolyte and fluid balance, not elsewhere classified Status: Acute Assessment and Plan: Potassium replacement ordered Plan DVT prophylaxis -SCDs. Patient ambulating Nutrition -consistent carbohydrate diet Code Status - Full Code Subjective Date/time seen: 10/10/23 12:39 Interval history: No overnight events. Blood sugar trend reviewed. Feels well. Discussed diet and physical activity insulin regimen with patient. Review of Systems Review of Systems: All systems reviewed & are unremarkable except as noted in HPI and below (HPI) Exam Narrative: General: Pt is alert awake and in NAD Lungs/Chest: Trachea central Clear BS B/L, No crackles or wheezing. Cardiac: RRR. Normal S1 S2. No murmurs Circulation: Pedal pulses are intact and symmetrical. Abdomen: Normal bowel sounds obese Soft. NT. ND. Extremities: No clubbing, cyanosis or edema. Warm : Hernandez in place Neurologic: Follows commands. Moves all 4 extremities PERRL AO x3 Skin: No Rash Objective Data Vital Signs Vital Signs: Vital Signs - 24 hr 10/09/23 14:00 10/09/23 15:58 10/09/23 16:07 Temperature 97.5 F L Pulse Rate 80 88 Respiratory Rate 16 Blood Pressure 130/78 Pulse Oximetry 100 Oxygen Delivery Room Air 10/09/23 20:56 10/09/23 20:00 10/10/23 08:47 Temperature 98.4 F 97.7 F Pulse Rate 93 93 86 Respiratory Rate 20 20 16 Blood Pressure 121/83 123/75 Pulse Oximetry 100 100 100 Oxygen Delivery Room Air 10/10/23 08:31 Temperature Pulse Rate Respiratory Rate Blood Pressure Pulse Oximetry Oxygen Delivery Room Air Intake/Output Intake/Output: Intake & Output 10/07/23 10/08/23 10/09/23 10/10/23 23:59 23:59 23:59 23:59 Intake Total 3757.7 3217.3 480 Output Total 700 2950 Balance 3057.7 267.3 480 Meds/Results Medications: Active Medications Generic Name Dose Route Start Last Admin Trade Name Freq PRN Reason Stop Dose Admin Dextrose 12.5 gm 10/08/23 09:06 Dextrose 50% 25 Gm/50 Ml Syringe IV PUSH PRN PRN Hypoglycemia Protocol Glucagon 1 mg 10/08/23 09:06 Glucagon For Inj 1 Mg Vial IM PRN PRN Hypoglycemia Protocol Glucose 15 gm 10/08/23 09:06 Glucose Oral Gel 15 Gm Of Glucse In 37.5 Gm Tube PO PRN PRN Hypoglycemia Protocol Dextrose 1,000 mls @ 100 mls/hr 10/08/23 09:06 Dextrose 5% 1,000 Ml IVPB PRN PRN Hypoglycemia Protocol Insulin Aspart 3 - 6 units 10/09/23 12:00 10/10/23 12:02 Insulin Aspart (*Bkc) 100 Units/Ml SUB-Q 6 units TIDWM MONA Administration Protocol Insulin Aspart 1 - 3 units 10/09/23 21:00 10/09/23 20:28 Insulin Aspart (*Bkc) 100 Units/Ml SUB-Q 3 units HS MONA Administration Protocol Insulin Aspart 8 units 10/10/23 12:00 10/10/23 12:02 Insulin Aspart (*Bkc) 100 Units/Ml SUB-Q 8 units TIDWM MONA Administration Insulin Glargine 26 units 10/10/23 09:00 10/10/23 08:34 Insulin Glargine (*Bkc) 100 Uni
[2023-10-10 12:46] LABS: Anion Gap 11 mmol/L (4-12); Blood Urea Nitrogen 9 mg/dL (9-20); Calcium 9.5 mg/dL (8.4-10.2); Carbon Dioxide 22 mmol/L (22-30); Chloride 101 mmol/L (98-107); Estimated CRCL calculation 172 ml/min; Estimated Glomerular Filt Rate > 60; Glucose 320 mg/dL (65-110); Sodium 134 mmol/L (137-145)
[2023-10-10 16:19] VITALS: BP 128/74; PULSE 90; RESP 16; TEMP 36.2; O2SAT 98
[2023-10-10 16:59] LABS: Glucose Point of Care 288 mg/dl (65-105)
[2023-10-10 20:00] VITALS: PULSE 90; RESP 16; O2SAT 98
[2023-10-10 23:29] VITALS: BP 138/93; PULSE 89; RESP 20; TEMP 36.3; O2SAT 99
[2023-10-11 00:22] LABS: Glucose Point of Care 261 mg/dl (65-105)
[2023-10-11 05:36] LABS: Basophils Percent Auto 0.6 % (0.2-1.2); Eosinophils Absolute Auto 0.2 K/mm3 (0-0.3); Eosinophils Percent Auto 2.8 % (0-4.4); Hematocrit 40.3 % (42.0-52.0); Hemoglobin 13.1 g/dL (14.0-18.0); Immature Granulocyte Absolute 0.05 K/mm3 (0.00-0.031); Immature Granulocyte Percent A 0.9 % (0-0.5); Lymphocytes Absolute Auto 2.09 K/mm3 (0.9-3.2); Lymphocytes Percent Auto 38.8 % (18.3-44.2); Mean Corpuscular HGB Conc 32.5 g/dl (32-36); Mean Corpuscular Hemoglobin 27.2 pg (26-34); Mean Corpuscular Volume 83.6 fl (80-100); Mean Platelet Volume 10.6 fl (7.4-10.4); Monocytes Absolute Auto 0.7 K/mm3 (0.1-0.6); Monocytes Percent Auto 12.1 % (2.6-8.5); Neutrophils Absolute Auto 2.4 K/mm3 (1.3-6.7); Neutrophils Percent Auto 44.8 % (45.5-73.1); Platelet Count Result 167 k/mm3 (150-375); Red Blood Count 4.82 M/mm3 (4.6-6.20); Red Cell Distribution Width 14.6 % (11.5-14.5); White Blood Count 5.4 K/mm3 (4.5-10.0)
[2023-10-11 05:52] LABS: Alanine Aminotransferase 20 U/L (6-50); Albumin Level 3.8 g/dL (3.5-5.1); Alkaline Phosphatase 96 U/L (38-126); Anion Gap 14 mmol/L (4-12); Aspartate Amino Transferase 25 U/L (17-59); Bilirubin,Total 0.9 mg/dL (0.2-1.3); Blood Urea Nitrogen 9 mg/dL (9-20); Calcium 9.6 mg/dL (8.4-10.2); Carbon Dioxide 22 mmol/L (22-30); Chloride 99 mmol/L (98-107); Estimated CRCL calculation 152 ml/min; Estimated Glomerular Filt Rate > 60; Glucose 307 mg/dL (65-110); Magnesium 1.7 mg/dL (1.6-2.3); Potassium 3.3 mmol/L (3.4-5.0); Sodium 135 mmol/L (137-145)
[2023-10-11 06:00] VITALS: BP 134/64; PULSE 64; RESP 20; TEMP 35.8; O2SAT 100
[2023-10-11 08:19] LABS: Glucose Point of Care 365 mg/dl (65-105)
[2023-10-11] MEDS: INSULIN GLARGINE (*BKC) 100 UNITS/ML 30 UNITS SUB-Q (08:25)
[2023-10-11] MEDS: INSULIN ASPART (*BKC) 100 UNITS/ML SUB-Q ×3 (08:25→17:45)
[2023-10-11 12:16] LABS: Glucose Point of Care 324 mg/dl (65-105)
[2023-10-11] MEDS: POTASSIUM CHLORIDE 20 MEQ ER TABLET 40 MEQ PO (13:29)
[2023-10-11] MEDS: INSULIN ASPART (*BKC) 100 UNITS/ML 10 UNITS SUB-Q ×2 (13:29→17:45)
[2023-10-11 16:00] VITALS: BP 139/81; PULSE 97; RESP 14; TEMP 37.2; O2SAT 99
[2023-10-11 17:24] LABS: Glucose Point of Care 273 mg/dl (65-105)
--- NOTE | 2023-10-11 17:29 | PM.IMPN ---
Progress Note: A&P Assessment and Plan (1) DKA (diabetic ketoacidosis): Qualifiers: Diabetes mellitus type: type 2 Diabetes mellitus complication detail: without coma Qualified Code(s): E11.10 - Type 2 diabetes mellitus with ketoacidosis without coma Code(s): E11.10 - Type 2 diabetes mellitus with ketoacidosis without coma Status: Acute Assessment and Plan: No objective signs of infection chest x-ray UA negative Patient was given IVF bolus and and is on infusion Patient started on Insulin infusion and Q1H glucose monitoring and will be continued Serial labs are being done Potassium replacement ordered transitioned to SC insulin once AG is closed delete Continue diet Patient was seen by dietitian and prosthodontist/educator Gap open this a.m. again. Increase insulin and recheck again this afternoon Will also check for insulin antibodies which is pending (2) Electrolyte abnormality: Code(s): E87.8 - Other disorders of electrolyte and fluid balance, not elsewhere classified Status: Acute Assessment and Plan: Potassium replacement ordered Plan DVT prophylaxis -SCDs. Patient ambulating Nutrition -consistent carbohydrate diet Code Status - Full Code Subjective Date/time seen: 10/11/23 17:29 Interval history: Tearful wants to know about the cure of the disease. Discussed disease process and management strategy with the patient. Blood sugar trend reviewed Review of Systems Review of Systems: All systems reviewed & are unremarkable except as noted in HPI and below (HPI) Exam Narrative: General: Pt is alert awake and in NAD Lungs/Chest: Trachea central Clear BS B/L, No crackles or wheezing. Cardiac: RRR. Normal S1 S2. No murmurs Circulation: Pedal pulses are intact and symmetrical. Abdomen: Normal bowel sounds obese Soft. NT. ND. Extremities: No clubbing, cyanosis or edema. Warm : Hernandez in place Neurologic: Follows commands. Moves all 4 extremities PERRL AO x3 Skin: No Rash Objective Data Vital Signs Vital Signs: Vital Signs - 24 hr 10/10/23 20:00 10/10/23 23:29 10/11/23 06:00 Temperature 97.3 F L 96.5 F L Pulse Rate 90 89 64 Respiratory Rate 16 20 20 Blood Pressure 138/93 H 134/64 Pulse Oximetry 98 99 100 Oxygen Delivery Room Air 10/11/23 08:00 10/11/23 16:00 Temperature 98.9 F Pulse Rate 97 Respiratory Rate 14 Blood Pressure 139/81 Pulse Oximetry 99 Oxygen Delivery Room Air Intake/Output Intake/Output: Intake & Output 10/08/23 10/09/23 10/10/23 10/11/23 23:59 23:59 23:59 23:59 Intake Total 3757.7 3217.3 1820 1062 Output Total 700 2950 Balance 3057.7 267.3 1820 1062 Meds/Results Medications: Active Medications Generic Name Dose Route Start Last Admin Trade Name Freq PRN Reason Stop Dose Admin Dextrose 12.5 gm 10/08/23 09:06 Dextrose 50% 25 Gm/50 Ml Syringe IV PUSH PRN PRN Hypoglycemia Protocol Glucagon 1 mg 10/08/23 09:06 Glucagon For Inj 1 Mg Vial IM PRN PRN Hypoglycemia Protocol Glucose 15 gm 10/08/23 09:06 Glucose Oral Gel 15 Gm Of Glucse In 37.5 Gm Tube PO PRN PRN Hypoglycemia Protocol Dextrose 1,000 mls @ 100 mls/hr 10/08/23 09:06 Dextrose 5% 1,000 Ml IVPB PRN PRN Hypoglycemia Protocol Insulin Aspart 3 - 6 units 10/09/23 12:00 10/11/23 13:30 Insulin Aspart (*Bkc) 100 Units/Ml SUB-Q 5 units TIDWM MONA Administration Protocol Insulin Aspart 1 - 3 units 10/09/23 21:00 10/10/23 21:16 Insulin Aspart (*Bkc) 100 Units/Ml SUB-Q 2 units HS MONA Administration Protocol Insulin Aspart 10 units 10/11/23 12:00 10/11/23 13:29 Insulin Aspart (*Bkc) 100 Units/Ml SUB-Q 10 units TIDWM MONA Administration Insulin Glargine 30 units 10/11/23 09:00 10/11/23 08:25 Insulin Glargine (*Bkc) 100 Units/Ml SUB-Q 30 units QAM MONA Administration Radiology Results: ITS Impressions Ches
[2023-10-11 20:00] VITALS: PULSE 97; RESP 14; O2SAT 99
[2023-10-11 23:08] VITALS: BP 150/73; PULSE 87; RESP 20; TEMP 36.1; O2SAT 98
[2023-10-12 05:41] LABS: Basophils Percent Auto 0.3 % (0.2-1.2); Eosinophils Absolute Auto 0.2 K/mm3 (0-0.3); Eosinophils Percent Auto 3.1 % (0-4.4); Hematocrit 36.8 % (42.0-52.0); Hemoglobin 12.3 g/dL (14.0-18.0); Immature Granulocyte Absolute 0.05 K/mm3 (0.00-0.031); Immature Granulocyte Percent A 0.8 % (0-0.5); Lymphocytes Absolute Auto 2.74 K/mm3 (0.9-3.2); Lymphocytes Percent Auto 42.7 % (18.3-44.2); Mean Corpuscular HGB Conc 33.4 g/dl (32-36); Mean Corpuscular Hemoglobin 27.8 pg (26-34); Mean Corpuscular Volume 83.3 fl (80-100); Mean Platelet Volume 10.7 fl (7.4-10.4); Monocytes Absolute Auto 0.8 K/mm3 (0.1-0.6); Monocytes Percent Auto 12.6 % (2.6-8.5); Neutrophils Absolute Auto 2.6 K/mm3 (1.3-6.7); Neutrophils Percent Auto 40.5 % (45.5-73.1); Platelet Count Result 169 k/mm3 (150-375); Red Blood Count 4.42 M/mm3 (4.6-6.20); Red Cell Distribution Width 14.6 % (11.5-14.5); White Blood Count 6.4 K/mm3 (4.5-10.0)
[2023-10-12 05:52] LABS: Glucose Point of Care 168 mg/dl (65-105)
[2023-10-12 05:56] LABS: Alanine Aminotransferase 21 U/L (6-50); Albumin Level 3.7 g/dL (3.5-5.1); Alkaline Phosphatase 86 U/L (38-126); Anion Gap 11 mmol/L (4-12); Aspartate Amino Transferase 30 U/L (17-59); Bilirubin,Total 0.7 mg/dL (0.2-1.3); Blood Urea Nitrogen 13 mg/dL (9-20); Calcium 9.4 mg/dL (8.4-10.2); Carbon Dioxide 23 mmol/L (22-30); Chloride 101 mmol/L (98-107); Estimated CRCL calculation 110 ml/min; Estimated Glomerular Filt Rate > 60; Glucose 273 mg/dL (65-110); Magnesium 1.6 mg/dL (1.6-2.3); Potassium 3.8 mmol/L (3.4-5.0); Sodium 135 mmol/L (137-145)
[2023-10-12 06:00] VITALS: BP 140/85; PULSE 75; RESP 20; TEMP 35.8; O2SAT 100
[2023-10-12 08:34] LABS: Glucose Point of Care 326 mg/dl (65-105)
[2023-10-12] MEDS: INSULIN ASPART (*BKC) 100 UNITS/ML SUB-Q ×2 (08:37→12:24)
[2023-10-12] MEDS: INSULIN GLARGINE (*BKC) 100 UNITS/ML 36 UNITS SUB-Q (08:37)
[2023-10-12] MEDS: INSULIN ASPART (*BKC) 100 UNITS/ML 15 UNITS SUB-Q ×2 (08:38→12:27)
[2023-10-12 12:24] LABS: Glucose Point of Care 256 mg/dl (65-105)
[2023-10-12 14:00] VITALS: BP 130/69; PULSE 98; RESP 16; TEMP 36.6; O2SAT 100
--- NOTE | 2023-10-12 14:33 | PM.DS ---
DS: Admitting Diagnosis Discharge Date 10/12/2023 Admitting Diagnosis DKA DS: Discharge Diagnosis Discharge Diagnosis (1) DKA (diabetic ketoacidosis): Qualifiers: Diabetes mellitus type: type 2 Diabetes mellitus complication detail: without coma Qualified Code(s): E11.10 - Type 2 diabetes mellitus with ketoacidosis without coma Code(s): E11.10 - Type 2 diabetes mellitus with ketoacidosis without coma Status: Acute (2) Electrolyte abnormality: Code(s): E87.8 - Other disorders of electrolyte and fluid balance, not elsewhere classified Status: Acute DS: Summary Hospital Course Hospital Course: # acute DKA: No objective signs of infection chest x-ray UA negative Patient was given IVF bolus and and is on infusion Patient started on Insulin infusion and Q1H glucose monitoring and will be continued Serial labs are being done Potassium replacement ordered transitioned to SC insulin once AG is closed Continue diet Patient was seen by dietitian and clinical trial educator Insulin antibodies pending Adjust insulin and will need to be titrated as an outpatient basis. Advised to see PCP within a week Keep a log of her blood sugar at home #Electrolyte abnormality (Acute) replace as needed #DVT prophylaxis -SCDs. Patient ambulating #Nutrition -consistent carbohydrate diet #Code Status - Full Code Time Spent with Patient Time attestation: Total time spent providing and/or coordinating discharge services: 45 minutes Exam Narrative: General: Pt is alert awake and in NAD Lungs/Chest: Trachea central Clear BS B/L, No crackles or wheezing. Cardiac: RRR. Normal S1 S2. No murmurs Circulation: Pedal pulses are intact and symmetrical. Abdomen: Normal bowel sounds obese Soft. NT. ND. Extremities: No clubbing, cyanosis or edema. Warm : Hernandez in place Neurologic: Follows commands. Moves all 4 extremities PERRL AO x3 Skin: No Rash DS: Data Data Completed and Pending Labs on day of discharge: Labs from last 24 hours 10/12/23 10/12/23 10/12/23 12:18 08:29 05:31 WBC 6.4 RBC 4.42 L Hgb 12.3 L Hct 36.8 L MCV 83.3 MCH 27.8 MCHC 33.4 RDW 14.6 H Plt Count 169 MPV 10.7 H Immature Gran % (Auto) 0.8 H Neut % (Auto) 40.5 L Lymph % (Auto) 42.7 Gibson % (Auto) 12.6 H Eos % (Auto) 3.1 Baso % (Auto) 0.3 Lymph # (Auto) 2.74 Gibson # (Auto) 0.8 H Eos # (Auto) 0.2 Baso # (Auto) 0.0 Abs Immat Gran (auto) 0.05 H Absolute Neuts (auto) 2.6 Absolute Nucleated RBC 0.000 Nucleated RBC % 0.0 Sodium 135 L Potassium 3.8 Chloride 101 Carbon Dioxide 23 Anion Gap 11 BUN 13 Creatinine 1.00 Estim Creat Clear Calc 110 Estimated GFR > 60 Glucose 273 H POC Capillary Glucose 256 H 326 H Calcium 9.4 Magnesium 1.6 Total Bilirubin 0.7 AST 30 ALT 21 Alkaline Phosphatase 86 Total Protein 7.0 Albumin 3.7 10/11/23 10/11/23 21:36 17:15 WBC RBC Hgb Hct MCV MCH MCHC RDW Plt Count MPV Immature Gran % (Auto) Neut % (Auto) Lymph % (Auto) Gibson % (Auto) Eos % (Auto) Baso % (Auto) Lymph # (Auto) Gibson # (Auto) Eos # (Auto) Baso # (Auto) Abs Immat Gran (auto) Absolute Neuts (auto) Absolute Nucleated RBC Nucleated RBC % Sodium Potassium Chloride Carbon Dioxide Anion Gap BUN Creatinine Estim Creat Clear Calc Estimated GFR Glucose POC Capillary Glucose 168 H 273 H Calcium Magnesium Total Bilirubin AST ALT Alkaline Phosphatase Total Protein Albumin Imaging Radiologist's impression: ITS Impressions Chest X-Ray 10/08/23 09:14 Impression: Normal chest. Discharge Plan Discharge Attending physician on discharge: Juan Manuel Abreu Consulting providers: Jimmie Bingham Discharging Clinician: Juan Manuel Abreu Anticipated Discharge Date/T
== END 2023-10-12 15:19 | disposition home or self-care (01) | DRG 420 ==
LOC: ANHED 09:14 → ANHICU 12:05 → ANH3MED 10-09 15:50
PROVIDERS: Emergency Medicine; Internal Medicine; Admitting Provider Family Medicine; Emergency Provider Nurse Practitioner Family; PCP Family Medicine; Visit Provider Internal Medicine
DX: E11.10 Type 2 diabetes mellitus with ketoacidosis without coma (principal); E87.8 Other disorders of electrolyte and fluid balance, not elsewhere classified
CPT/HCPCS: 36415; 71046; 80048; 80053; 81001; 82010; 82803; 82948; 83036; 83735; 84100; 85025; 86337; 87641; 93005; 99285; A9270; J1815; J3480; J7030

== ENCOUNTER 2024-07-22 14:51 | Emergency (ER) | payer SELFPAY ==
--- OUTSIDE RECORDS SUMMARY | 2024-07-22 14:53 | XMS_ITS | Referral Summary ---
Author Organization [facility] Address [address] [place] [address] Care Team Providers Care Treating Plant Operator Name Role Phone Iftikhar Alexis MD Primary Care Provider [phone] Allergies No known active allergies Medications clonazePAM (KlonoPIN) 0.5 mg tablet Take 1 tablet (0.5 mg total) by mouth 3 (three) times a day as needed for anxiety for up to 10 days 15 tablet 04/01/2022 Active Social History Tobacco Use Types Packs/Day Years Used Date Smoking Tobacco: Never Assessed Personal Safety Answer Date Recorded Getting School Help Needed Not on file 05/28 Sex and Gender Information Value Date Recorded Sex Assigned at Not on file Legal Sex Male 5:38 PM REGISTERED PUBLIC HEALTH NURSE Gender Identity Not on file Sexual Orientation Not on file Last Filed Vital Signs Vital Sign Reading Time Taken Comments Blood Pressure 151/90 04/01/2022 8:00 PM REGISTERED PUBLIC HEALTH NURSE Pulse 97 04/01/2022 8:00 PM REGISTERED PUBLIC HEALTH NURSE Temperature 36.7 C (98.1 F) 04/01/2022 3:18 PM REGISTERED PUBLIC HEALTH NURSE Respiratory Rate 24 04/01/2022 8:00 PM REGISTERED PUBLIC HEALTH NURSE Oxygen Saturation 98% 04/01/2022 8:00 PM REGISTERED PUBLIC HEALTH NURSE Inhaled Oxygen Concentration - - Weight 125 kg (275 lb 9.2 oz) 04/01/2022 3:18 PM REGISTERED PUBLIC HEALTH NURSE Height 190.5 cm (6' 3 ) 04/01/2022 3:18 PM REGISTERED PUBLIC HEALTH NURSE Body Mass Index 34.44 04/01/2022 3:18 PM REGISTERED PUBLIC HEALTH NURSE Plan of Treatment Not on file Care Teams Treating Plant Operator Relationship Specialty Start Date End Date Iftikhar Alexis MD PCP - General Family Medicine 08/08/21
--- OUTSIDE RECORDS SUMMARY | 2024-07-22 14:53 | XMS_ITS | Clinical Summary ---
Author Organization [facility] Address [address] [place] [address] Care Team Providers Care Child Care Worker Name Role Phone Iftikhar Alexis MD Primary Care Provider Allergies No known active allergies Medications clonazePAM [...] on file Legal Sex Male 5:38 PM DIRECTOR OF SECURITY Gender Identity Not on file Sexual Orientation Not on file Last Filed Vital Signs Vital Sign Reading Time Taken Comments Blood Pressure 151/90 04/01/2022 8:00 PM DIRECTOR OF SECURITY Pulse 97 04/01/2022 8:00 PM DIRECTOR OF SECURITY Temperature 36.7 C (98.1 F) 04/01/2022 3:18 PM DIRECTOR OF SECURITY Respiratory Rate 24 04/01/2022 8:00 PM DIRECTOR OF SECURITY Oxygen Saturation 98% 04/01/2022 8:00 PM DIRECTOR OF SECURITY Inhaled Oxygen Concentration - - Weight 125 kg (275 lb 9.2 oz) 04/01/2022 3:18 PM DIRECTOR OF SECURITY Height 190.5 cm (6' 3 ) 04/01/2022 3:18 PM DIRECTOR OF SECURITY Body Mass Index 34.44 04/01/2022 3:18 PM DIRECTOR OF SECURITY Plan of Treatment Health Maintenance Due Date Last Done Comments Depression Screening 1989 Hepatitis C Screening 1989 DTaP/Tdap/Td Vaccine (1 - Tdap) 2000 Varicella Vaccines (1 of 2 - 13+ 2-dose series) 2002 Hepatitis B Screening 07/25/2007 Regular Well Visit/Exam 18-64 07/25/2007 Influenza Vaccine (#1) 2023 HPV Vaccines Aged Out No longer eligi ble based on patient's age to complete this topic Pneumococcal vaccine <65 Aged Out No longer eligible based on patient's age to complete this topic Care Teams Child Care Worker Relationship Specialty Start Date End Date Iftikhar Alexis MD PCP - General Family Medicine 08/08/21
[2024-07-22 15:15] VITALS: BP 151/81; PULSE 70; RESP 16; TEMP 36.5; O2SAT 99
[2024-07-22 15:41] LABS: Strep Group A RT-PCR NOT DETECTED (Negative)
[2024-07-22 15:52] LABS: Influenza A QL RT-PCR Negative (Negative); Influenza B QL RT-PCR Negative (Negative); RSV RNA, RT-PCR Negative (Negative); SARS-CoV-2 RNA PCR Negative (Negative)
[2024-07-22 16:32] VITALS: O2SAT 99
--- OUTSIDE RECORDS SUMMARY | 2024-07-22 16:50 | XMS_ITS | Referral Summary ---
Author Organization [facility] Address [address] [place] [address] Care Team Providers Care Credit Control Clerk Name Role Phone Iftikhar Alexis MD Primary [...] on file Legal Sex Male 5:38 PM TECHNICAL FELLOW Gender Identity Not on file Sexual Orientation Not on file Last Filed Vital Signs Vital Sign Reading Time Taken Comments Blood Pressure 151/90 04/01/2022 8:00 PM TECHNICAL FELLOW Pulse 97 04/01/2022 8:00 PM TECHNICAL FELLOW Temperature 36.7 C (98.1 F) 04/01/2022 3:18 PM TECHNICAL FELLOW Respiratory Rate 24 04/01/2022 8:00 PM TECHNICAL FELLOW Oxygen Saturation 98% 04/01/2022 8:00 PM TECHNICAL FELLOW Inhaled Oxygen Concentration - - Weight 125 kg (275 lb 9.2 oz) 04/01/2022 3:18 PM TECHNICAL FELLOW Height 190.5 cm (6' 3 ) 04/01/2022 3:18 PM TECHNICAL FELLOW Body Mass Index 34.44 04/01/2022 3:18 PM TECHNICAL FELLOW Plan of Treatment Not on file Care Teams Credit Control Clerk Relationship Specialty Start Date End Date Iftikhar Alexis MD PCP - General Family Medicine 08/08/21
--- OUTSIDE RECORDS SUMMARY | 2024-07-22 16:50 | XMS_ITS | Clinical Summary ---
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 Gender Identity Not on file Sexual Orientation Not on file Last Filed Vital Signs Vital Sign Reading Time Taken Comments Blood Pressure 151/90 04/01/2022 8:00 PM INTERFACE DESIGNER Pulse 97 04/01/2022 8:00 PM INTERFACE DESIGNER Temperature 36.7 C (98.1 F) 04/01/2022 3:18 PM INTERFACE DESIGNER Respiratory Rate 24 04/01/2022 8:00 PM INTERFACE DESIGNER Oxygen Saturation 98% 04/01/2022 8:00 PM INTERFACE DESIGNER Inhaled Oxygen Concentration - - Weight 125 kg (275 lb 9.2 oz) 04/01/2022 3:18 PM INTERFACE DESIGNER Height 190.5 cm (6' 3 ) 04/01/2022 3:18 PM INTERFACE DESIGNER Body Mass Index 34.44 04/01/2022 3:18 PM INTERFACE DESIGNER Plan of Treatment Health Maintenance Due Date [...] age to complete this topic Care Teams Mason Tender Restoration Labor Relationship Specialty Start Date End Date Iftikhar Alexis MD PCP - General Family Medicine 08/08/21
--- NOTE | 2024-07-22 17:02 | ED.GENADULT ---
HPI - General Adult General Chief complaint: Upper Respiratory Infection Stated complaint: congestion, sore throat Time Seen by Provider: 07/22/24 16:26 History of Present Illness HPI narrative: 33-year-old male presents emergency department for evaluation for sore throat nasal congestion that has been going on for the last few days. Patient denies any difficulty breathing or swallowing Related Data Allergies Allergy/AdvReac Type Severity Reaction Status Date / Time No Known Allergies Allergy Verified 07/22/24 14:51 Review of Systems Review of Systems: All systems reviewed & are unremarkable except as noted in HPI and below PMFSH Past Medical History Medical History Diabetic ketoacidosis associated with type 2 diabetes mellitus Anxiety Diabetes mellitus Elevated BP without diagnosis of hypertension DKA (diabetic ketoacidosis) Surgical History Surgical History No pertinent past surgical history Family History Family History Mother Healthy female Hypertension Father Healthy adult Sibling No problems noted. Social History Social History Social History: Patient is single and does not have any children. 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 He occasionally drinks alcohol and only in moderation. He is a lifelong nonsmoker and denies illicit substance use. 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 HEAD: normocephalic, atraumatic. EYES: PERRLA/EOMI, conjunctivae clear. NOSE: Normal no drainage EARS:TMS clear with good light reflex. THROAT: Pharynx clear, no exudate. NECK: Supple. No adenopathy, no masses. RESPIRATORY: Airway patent, respirations nonlabored. Clear to auscultation bilaterally, no rales, rhonchi, wheezing. CARDIOVASCULAR: Regular rate and rhythm without murmurs rubs or gallops. ABDOMINAL: Soft, nontender, nondistended, normal bowel sounds MUSCULOSKELETAL: Moves all extremities. Strength/ROM intact, No edema, No calf tenderness. NEURO: Alert. Cranial nerves II through XII intact. Good gait. Good coordination SKIN: Warm, dry. Normal Color Course Vital Signs Vital signs: Vital Signs Temperature 97.7 F 07/22/24 15:15 Pulse Rate 70 07/22/24 15:15 Respiratory Rate 16 07/22/24 15:15 Blood Pressure 151/81 H 07/22/24 15:15 Pulse Oximetry 99 07/22/24 15:15 Oxygen Delivery Room Air 07/22/24 15:15 Temperature 97.7 F 07/22/24 15:15 Pulse Rate 74 07/22/24 17:36 Respiratory Rate 16 07/22/24 17:36 Blood Pressure 136/88 07/22/24 17:36 Pulse Oximetry 99 07/22/24 17:36 Oxygen Delivery Room Air 07/22/24 16:32 Medical Decision Making MDM Narrative Medical decision making narrative: [age] old male presents to the emergency department for evaluation for sore throat nasal congestion. Patient was negative for influenza RSV and for COVID strep. Suspect patient is having postnasal drip causing the worsening pharyngitis symptoms. Differential Diagnosis Differential Diagnosis: COVID, RSV, influenza, strep throat, postnasal drip, pharyngitis Vital Signs Vital Signs: Vital Signs Temperature 97.7 F 07/22/24 15:15 Pulse Rate 70 07/22/24 15:15 Respiratory Rate 16 07/22/24 15:15 Blood Pressure 151/81 H 07/22/24 15:15 Pulse Oximetry 99 07/22/24 15:15 Oxygen Delivery Room Air 07/22/24 15:15 Temperature 97.7 F 07/22/24 15:15 Pulse Rate 74 07/22/24 17:36 Respiratory Rate 16 07/22/24 17:36 Blood Pressure 136/88 07/22/24 17:36 Pulse Oximetry 99 07/22/24 17:36 Oxygen Delivery Room Air 07/22/24 16:32 Lab Data Lab results reviewed: Yes I reviewed the patient's lab results. Labs: Lab Results 07/22/24 Range/Units 15:10 Influenza A (RT-PCR) Negative (Negative) Influenza B (RT-PCR) Negative (Negative) RSV (RT-PCR) Negative (Negative) SARS-CoV-2 RNA (RT-PCR) Negative (Negative) Group A Strep (PCR) Not detected (Negative) Discharge Plan Discharge Clinical Impression: Acute sore throat, Post-nasal drip Patient Disposition: Home Condition: Stable Instructions: Antibiotic Form, Pharyngitis (ED), Viral Syndrome (ED), Postnasal Drip (DC) Additional Instructions: Tylenol and ibuprofen for pain control. Claritin or Zyrtec as needed for postnasal drip. Have close follow-up with your primary care physician. Patient Language: Citizen Of [place] Prescriptions: No Action insulin degludec [Tresiba FlexTouch U-100] 100 unit/mL (3 mL) insulin pen 36 unit subcut DAILY 30 Days Qty: 12 11RF insulin aspart U-100 [Novolog FlexPen U-100 Insulin] 100 unit/mL (3 mL) insulin pen 12 unit subcut TID 30 Days Qty: 12 11RF (DME) pen needle, diabetic 32 gauge x 5/32 needle Qty: 200 11RF Rx Instructions: use four times daily Follow-up/Referrals: UNKNOWN,DOCTOR [Primary Care Provider] -
[2024-07-22 17:36] VITALS: BP 136/88; PULSE 74; RESP 16; O2SAT 99
== END 2024-07-22 17:38 | disposition home or self-care (01) ==
PROVIDERS: Emergency Provider Emergency Medicine
DX: J02.9 Acute pharyngitis, unspecified (principal); R09.82 Postnasal drip; Z20.822 Contact with and (suspected) exposure to COVID-19; E11.9 Type 2 diabetes mellitus without complications; Z79.4 Long term (current) use of insulin
CPT/HCPCS: 87637; 87651; 99283

== ENCOUNTER 2025-02-05 09:14 | Emergency (ER) | payer OTHER, SELFPAY ==
[2025-02-05 09:17] VITALS: BP 156/76; PULSE 94; RESP 16; TEMP 36.6; O2SAT 100
--- OUTSIDE RECORDS SUMMARY | 2025-02-05 09:43 | XMS_ITS | Clinical Summary ---
Author Organization 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 Gender Identity Not on file Sexual Orientation Not on file Last Filed Vital Signs Vital Sign Reading Time Taken Comments Blood Pressure 151/90 04/01/2022 8:00 PM TEAM ASSISTANT Pulse 97 04/01/2022 8:00 PM TEAM ASSISTANT Temperature 36.7 C (98.1 F) 04/01/2022 3:18 PM TEAM ASSISTANT Respiratory Rate 24 04/01/2022 8:00 PM TEAM ASSISTANT Oxygen Saturation 98% 04/01/2022 8:00 PM TEAM ASSISTANT Inhaled Oxygen Concentration - - Weight 125 kg (275 lb 9.2 oz) 04/01/2022 3:18 PM TEAM ASSISTANT Height 190.5 cm (6' 3) 04/01/2022 3:18 PM TEAM ASSISTANT Body Mass Index 34.44 04/01/2022 3:18 PM TEAM ASSISTANT Plan of Treatment Health Maintenance Due Date Last Done Comments Depression Screening 1989 Hepatitis C Screening 1989 DTaP/Tdap/Td Vaccine (1 - Tdap) 2000 Varicella Vaccines (1 of 2 - 13+ 2-dose series) 2002 Hepatitis B Screening 07/25/2007 Regular Well Visit/Exam 18-64 07/25/2007 HPV Vaccines (1 - 3-dose SCD M series) 2016 Influenza Vaccine (#1) 2024 Pneumococcal vaccine <65 Aged Out No longer eligible based on patient's age to complete this topic Care Teams Airborne Operations Manager Relationship Specialty Start Date End Date Iftikhar Alexis MD PCP - General Family Medicine 08/08/21
[2025-02-05 12:12] VITALS: BP 144/80; PULSE 82; RESP 15; O2SAT 98
--- OUTSIDE RECORDS SUMMARY | 2025-02-05 12:17 | XMS_ITS | Clinical Summary ---
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 Gender Identity Not on file Sexual Orientation Not on file Last Filed Vital Signs Vital Sign Reading Time Taken Comments Blood Pressure 151/90 04/01/2022 8:00 PM DEPUTY DISTRICT CUSTOMS DIRECTOR Pulse 97 04/01/2022 8:00 PM DEPUTY DISTRICT CUSTOMS DIRECTOR Temperature 36.7 C (98.1 F) 04/01/2022 3:18 PM DEPUTY DISTRICT CUSTOMS DIRECTOR Respiratory Rate 24 04/01/2022 8:00 PM DEPUTY DISTRICT CUSTOMS DIRECTOR Oxygen Saturation 98% 04/01/2022 8:00 PM DEPUTY DISTRICT CUSTOMS DIRECTOR Inhaled Oxygen Concentration - - Weight 125 kg (275 lb 9.2 oz) 04/01/2022 3:18 PM DEPUTY DISTRICT CUSTOMS DIRECTOR Height 190.5 cm (6' 3) 04/01/2022 3:18 PM DEPUTY DISTRICT CUSTOMS DIRECTOR Body Mass Index 34.44 04/01/2022 3:18 PM DEPUTY DISTRICT CUSTOMS DIRECTOR Plan of Treatment Health Maintenance Due Date [...] age to complete this topic Care Teams Vibration Technician Relationship Specialty Start Date End Date Iftikhar Alexis MD PCP - General Family Medicine 08/08/21
[2025-02-05 14:28] VITALS: BP 149/89; PULSE 70; RESP 17; O2SAT 100
--- NOTE | 2025-02-05 14:36 | ED.GENADULT ---
HPI - General Adult General Chief complaint: Eye Problems Stated complaint: R eye irritation Time Seen by Provider: 02/05/25 11:11 History of Present Illness HPI narrative: 34-year-old male presenting with complaints of right eye pain. Patient states he was placing a class protective screen on his phone when it suddenly broke. He reports he woke up next morning and it was red and irritated. Patient endorses no vision changes, purulence/lacrimation, sensitivity to light, burning/stinging, or sensation of a foreign object headache, dizziness, fevers/chills. Related Data Home Medications ?Medication ?Instructions ?Recorded ?Confirmed ?Last Taken ?Type insulin aspart U-100 100 unit/mL 6 unit subcut TID 08/10/24 08/10/24 Unknown History (3 mL) subcutaneous pen (Novolog FlexPen U-100 Insulin aspart) Allergies Allergy/AdvReac Type Severity Reaction Status Date / Time No Known Allergies Allergy Verified 02/05/25 09:16 Review of Systems Review of Systems: All systems reviewed & are unremarkable except as noted in HPI and below PMFSH Past Medical History Medical History Diabetic ketoacidosis associated with type 2 diabetes mellitus Anxiety Diabetes mellitus Elevated BP without diagnosis of hypertension DKA (diabetic ketoacidosis) Surgical History Surgical History No pertinent past surgical history Family History Family History Mother Healthy female Hypertension Father Healthy adult Sibling No problems noted. Social History Social History Social History: Patient is single and does not have any children. 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 He occasionally drinks alcohol and only in moderation. He is a lifelong nonsmoker and denies illicit substance use. 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 HEAD: Normocephalic, atraumatic. EYES: PERRLA and EOMI. Right-sided exotropia. ENT: Nares clear, no rhinorrhea or epistaxis. Mucous membranes moist. Oropharynx without tonsillar hypertrophy exudate or other lesions. Bilateral TMs pearly bashir non-bulging. Mild right-sided conjunctival injection. No foreign bodies. NECK: Supple. No adenopathy or masses. No carotid bruits or JVD CHEST: Clear to auscultation. No respiratory distress. No wheezes rales or rhonchi HEART: Regular rate and rhythm. No murmur heard. Normal peripheral pulses. ABDOMEN: Soft, nontender, nondistended, normal active bowel sounds. EXTREMITIES: Normal range of motion. No edema. SKIN: Warm, dry, no rash. NEURO: No focal deficits. Alert and oriented x3. PSYCH: Normal mood and affect Course Vital Signs Vital signs: Vital Signs Temperature 97.9 F 02/05/25 09:17 Pulse Rate 94 02/05/25 09:17 Respiratory Rate 16 02/05/25 09:17 Blood Pressure 156/76 H 02/05/25 09:17 Pulse Oximetry 100 02/05/25 09:17 Oxygen Delivery Room Air 02/05/25 09:17 Temperature 97.9 F 02/05/25 09:17 Pulse Rate 70 02/05/25 14:28 Respiratory Rate 17 02/05/25 14:28 Blood Pressure 149/89 H 02/05/25 14:28 Pulse Oximetry 100 02/05/25 14:28 Oxygen Delivery Room Air 02/05/25 09:17 Medical Decision Making MDM Narrative Medical decision making narrative: 34-year-old male presenting with complaints of right eye pain. Patient states he was placing a class protective screen on his phone when it suddenly broke. He reports he woke up next morning and it was red and irritated. Patient endorses no vision changes, purulence/lacrimation, sensitivity to light, burning/stinging, or sensation of a foreign object headache, dizziness, fevers/chills. Patient's intraocular pressures were 13mmHg (L) and 14mmHg(R). No abrasions seen on Fluorecin eye exam. Visual acuities were 20/20 in the left eye and 20/40 in the right eye. Patient has never seen an manager statistics and does not know what his baseline is. He does not wear contacts or glasses. He endorses no changes in his vision. No pain with extraocular movements. Advised outpatient care with allergic conjunctivitis drops and antibiotic drop that the patient can get if symptoms do not improve. Follow up with PCP/manager statistics. Medical Records Medical records reviewed: Yes I reviewed the external patient's medical records. Vital Signs Vital Signs: Vital Signs Temperature 97.9 F 02/05/25 09:17 Pulse Rate 94 02/05/25 09:17 Respiratory Rate 16 02/05/25 09:17 Blood Pressure 156/76 H 02/05/25 09:17 Pulse Oximetry 100 02/05/25 09:17 Oxygen Delivery Room Air 02/05/25 09:17 Temperature 97.9 F 02/05/25 09:17 Pulse Rate 70 02/05/25 14:28 Respiratory Rate 17 02/05/25 14:28 Blood Pressure 149/89 H 02/05/25 14:28 Pulse Oximetry 100 02/05/25 14:28 Oxygen Delivery Room Air 02/05/25 09:17 Critical Care Time Critical Care Time Critical Care Time: No Discharge Plan Discharge Clinical Impression: Conjunctivitis Patient Disposition: Home Condition: Stable Instructions: Conjunctivitis (ED) Additional Instructions: Wash your hands frequently. Avoid touching or rubbing your eyes. Use a clean tissue or gauze to wipe away discharge, and discard immediately. Apply warm compresses several times a day to help with crusting or discomfort. Prescribed allergic conjunctivitis eye drops, use as needed. If no improvement after a few days, you may pickup the antibiotic drops and begin treatment. Follow up with PCP and/or Optemetrist at [facility]. Patient Language: [place] Prescriptions: New ofloxacin [Ocuflox] 0.3 % drops See Rx Instructions .ROUTE .COMPLEX Qty: 5 0RF Rx Instructions: put 1-2 drps into affected eye(s) every 2-4 h x 2 days, then 1-2 drps 4 times/day days 3-7 ketotifen fumarate [Alaway] 0.025 % (0.035 %) drops 1 drp RIGHT EYE BID PRN (Reason: allergy symptoms) Qty: 5 0RF Rx Instructions: administer at least 8 hours apart No Action insulin aspart U-100 [Novolog FlexPen U-100 Insulin] 100 unit/mL (3 mL) insulin pen 6 unit subcut TID (DME) FreeStyle Fernando 3 Plus Sensor Device See Rx Instructions .Route Qty: 2 11RF Rx Instructions: As directed insulin degludec [Tresiba FlexTouch U-100] 100 unit/mL (3 mL) insulin pen 36 unit subcut DAILY 30 Days Qty: 12 11RF (DME) pen needle, diabetic 32 gauge x 5/32 needle Qty: 200 11RF Rx Instructions: use four times daily Follow-up/Referrals: Raul Sahni [Outside] Raul Wiggins [Outside] Natalia Fontenot, PAC [Primary Care Provider, Family Practice]
== END 2025-02-05 15:24 | disposition home or self-care (01) ==
PROVIDERS: PCP Physician Assistant Medical
DX: H10.9 Unspecified conjunctivitis (principal); E11.9 Type 2 diabetes mellitus without complications; F41.9 Anxiety disorder, unspecified; Z79.4 Long term (current) use of insulin
CPT/HCPCS: 99283